=== PATIENT | male | born 1945 | race Caucasian/White ===

== ENCOUNTER → 2017-02-25 | Outpatient (CLI) | payer OTHER ==
[~2017-02-25] MED LIST: ACET1TAB84 PO; CIPR-255 PO; DIAZ-165 PO; LEVO50TA6 PO; MECL1TAB42 PO; ONDA4TAB10 SL; OXYC-57 PO; OXYC1TAB3 PO; PERCOCET PO; PHEN-775 PO
[2017-02-25 15:12] LABS: BLOOD UREA NITROGEN 18 mg/dl (7-18); BUN/CREATININE RATIO 16.7 (10-20); CALCIUM 9.1 mg/dl (8.5-10.1); CARBON DIOXIDE 30 mmol/L (21-32); CHLORIDE 107 mmol/L (98-107); CHOLESTEROL 210 mg/dl (0-200); GLUCOSE 89 mg/dl (70-99); POTASSIUM 4.4 mmol/L (3.5-5.1); SODIUM 140 mmol/L (136-145); TRIGLYCERIDES 65 mg/dl (0-150); VERY LOW DENSITY LIPOPROT CALC 13 mg/dl
[2017-02-25 15:22] LABS: CHOLESTEROL/HDL RATIO 4.3; HDL CHOLESTEROL 49 mg/dl; LDL CHOLESTEROL CALCULATED 148 mg/dl
--- NOTE | 2017-03-04 09:44 | CODING QUERY MEDICAL NECESSITY ---
CQSUPPORTING DIAGNOSIS NEEDED A supporting diagnosis is required for the test/procedure performed on this patient in order for us to be reimbursed by the patient's insurance. Please provide a supporting diagnosis for the following test/procedure listed below next to the test name along with your signature. *If there is no additional diagnosis for this patient that would support the following test/procedure please document that below next to the test/procedure. Test(s)/Procedure(s) that require a supporting diagnosis: DOS 02/25/17 PROSTATE SPECIFIC TEST (PSA) Provider Signature: Date: Thank you Liseth Malcolm Health Information Management Once completed, please kindly fax back to [phone] For questions please call [phone]
== END | disposition home or self-care (01) ==
LOC: C.LABBC 09:52
PROVIDERS: ATTEND Internal Medicine
DX: E78.5 Hyperlipidemia, unspecified (principal); N20.0 Calculus of kidney; E03.9 Hypothyroidism, unspecified; N52.9 Male erectile dysfunction, unspecified; Z12.5 Encounter for screening for malignant neoplasm of prostate

== ENCOUNTER 2017-02-27 14:26 | Emergency (ER) | payer OTHER ==
[~2017-02-27 14:26] MED LIST changes: -ACET1TAB84 PO; -CIPR-255 PO; -DIAZ-165 PO; -LEVO50TA6 PO; -ONDA4TAB10 SL; -OXYC-57 PO; -OXYC1TAB3 PO; -PERCOCET PO; -PHEN-775 PO
[2017-02-27 14:30] VITALS: TEMP 37.2; Ht 180.3 cm
[2017-02-27] MEDS ORDERED: KETOROLAC TROMETHAMINE 30 MG/ML VIAL IV STA (14:44)
[2017-02-27] MEDS ORDERED: LEVO50TA6 PO (14:58)
[2017-02-27 15:00] LABS: BASO % 0.8 %; BASO ABS # 0.05 K/uL (0-0.2); COMPLETE YES; EOS % 4.2 %; HEMATOCRIT 44.7 % (42-52); IG% 0.2 %; LYMPH % 44.9 %; LYMPH ABS # 2.99 K/uL (1.2-3.4); MEAN CELL VOLUME 92.5 fL (80-100); MEAN CORPUSCULAR HEMOGLOBIN 32.1 pg (25-34); MEAN CORPUSCULAR HGB CONC 34.7 g/dl (32-36); MEAN PLATELET VOLUME 10.1 fL (7.4-10.4); MONO % 9.5 %; NEUT % 40.4 %; PLATELET COUNT 220 K/uL (130-400); RED BLOOD COUNT 4.83 M/uL (4.7-6.1); WHITE BLOOD COUNT 6.66 K/uL (4.8-10.8)
[2017-02-27 15:12] LABS: PARTIAL THROMBOPLASTIN RATIO 0.9; PROTHROMBIN TIME (PATIENT) 10.5 SECONDS (9.0-12.0)
[2017-02-27 15:18] LABS: BLOOD UREA NITROGEN 24 mg/dl (7-18); BUN/CREATININE RATIO 19.8 (10-20); CALCIUM 9.4 mg/dl (8.5-10.1); CARBON DIOXIDE 29 mmol/L (21-32); CHLORIDE 105 mmol/L (98-107); GLUCOSE 92 mg/dl (70-99); POTASSIUM 4.3 mmol/L (3.5-5.1); SODIUM 141 mmol/L (136-145)
[2017-02-27 15:27] LABS: URINE APPEARANCE CLOUDY (CLEAR); URINE BILIRUBIN NEG (NEG); URINE COLOR DK YELLOW; URINE EPITHELIAL CELL AUTO >30 /lpf (0-5); URINE NITRITE NEG (NEG); URINE PH 6.5 (4.5-7.5); UROBILINOGEN NEG (NEG)
[2017-02-27 15:31] LABS: MANUAL MICROSCOPIC REQUIRED? NO; REVIEW REQ? YES
--- NOTE | 2017-02-27 15:44 | DIAGNOSTIC IMAGING REPORT ---
CT SCAN OF THE ABDOMEN AND PELVIS WITHOUT IV CONTRAST CLINICAL HISTORY: Pelvic pain. COMPARISON STUDY: Renal ultrasound dated 01/05/2014. TECHNIQUE: CT scan of the abdomen and pelvis is performed from the lung bases to the proximal femora. Images are reviewed in the axial, sagittal, and coronal planes. IV contrast was not administered for this examination as per the referring clinician. Automated dose control exposure was utilized. CT DOSE: 761.28 mGy.cm FINDINGS: Lung bases: The heart is normal in size and without pericardial effusion. A calcified granuloma is seen at the left lung base. There is a 7 mm pulmonary nodule at the right lung base seen on image #48. Dependent atelectasis is observed. There is no airspace consolidation or pleural effusion. There is a tiny hiatal hernia. Liver: The unenhanced liver is normal in size, contour, and attenuation. There is no intrahepatic biliary ductal dilatation. Gallbladder: There are numerous calcified gallstones. The gallbladder is otherwise normal in appearance. Spleen: Normal in size and attenuation. Pancreas: Unremarkable. Adrenal glands: Unremarkable. Kidneys: The unenhanced kidneys demonstrate mild cortical atrophy. There is an 11 mm obstructing calculus in the proximal left ureter seen on axial image #169. This is located at the level of L3 and causes mild to moderate left hydronephrosis. There are at least 3 additional nonobstructing left renal calculi measuring up to 4 mm. No calculi are identified in the right kidney and there is no right-sided hydronephrosis. There is no evidence of contour deforming renal mass lesion. Abdominal vasculature: The abdominal aorta is normal in course and caliber noting moderate atherosclerotic calcification. Bowel: The small bowel and colon are normal in course and caliber. There is mild sigmoid diverticulosis without CT evidence of acute diverticulitis. Moderate colonic fecal retention is observed. The appendix is not identified and reported surgically absent. Peritoneum: There is no intraperitoneal free air or abdominal ascites. There is a fat-containing umbilical hernia. Lymphadenopathy: None. Pelvic viscera: The bladder is partially decompressed and grossly unremarkable. The prostate gland is mildly enlarged. The seminal vesicles are normal as imaged. Skeletal structures: The skeletal structures are osteopenic. There is mild lumbosacral spondylosis and scoliosis. No lytic or blastic lesions are seen. IMPRESSION: 1. There is an 11 mm obstructing calculus in the left proximal ureter. This causes mild to moderate left-sided hydronephrosis. 2. Additional nonobstructing left renal calculi as above. No right renal calculi are identified. 3. Mild colonic diverticulosis without CT evidence of acute diverticulitis. 4. Cholelithiasis. 5. There is an indeterminant 7 mm right lower lobe pulmonary nodule. Follow-up with a nonemergent chest CT is recommended for further assessment of the thorax. Electronically signed by: Agustin Matute M.D. 02/27/2017 3:42 PM Dictated Date/Time: 02/27/2017 3:35 PM
[2017-02-27] MEDS ORDERED: ONDA4TAB10 SL (16:31)
[2017-02-27] MEDS ORDERED: OXYC1TAB3 PO (16:31)
[2017-02-27 16:49] VITALS: BP 141/76; PULSE 53; O2SAT 100
--- NOTE | 2017-02-27 18:10 | EMERGENCY ROOM VISIT NOTE ---
History Report prepared by Colleen: Taylor Amezcua Under the Supervision of: Dr. Kamaljit Degroot M.D. 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 The patient states that he initially felt an urge to urinate. When he urinated, only a very small amount was voided. At that point, his pain started to worsen. He describes the pain as sharp. Upon arrival to the ED, he became nauseated. He currently has an urge to urinate, but once again is only able to void a small amount. He has had some trouble with urination in the past , but nothing out of the ordinary. He has a history of kidney stones. His current symptoms do not feel similar to previous kidney stones. Denies fever, vomiting, dysuria, or other complaints. 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 A total of 10 systems reviewed and were otherwise negative. Past Medical & Surgical Medical Problems: (1) Calculus Of Kidney (2) Hyperlipidemia Nec/Nos Family History No pertinent family history Social History Smoking Status: Never Smoker Alcohol Use: none Drug Use: none Housing Status: lives with family Occupation Status: unemployed Current/Historical Medications Scheduled Levothyroxine Sodium (Levothyroxine Sodium), 50 MCG PO DAILYBB Ondasetron Odt (Zofran Odt), 4 MG SL Q6H Scheduled PRN Oxycodone Ir (Roxicodone Ir), 5 MG PO Q4H PRN for Pain Allergies Coded Allergies: No Known Allergies (Unverified , 02/27/17) Physical Exam Vital Signs Date Time Temp Pulse Resp B/P Pulse Ox O2 Delivery O2 Flow Rate FiO2 02/27/17 16:49 53 19 141/76 100 02/27/17 15:03 150/89 02/27/17 14:30 37.2 56 20 97 Room Air Physical Exam Constitutional: Vital signs reviewed. Eyes: Pupils are equal round reactive to light. Conjunctiva are noninjected. ENT: Pharynx is clear without erythema or exudate. Mucous membranes are moist. Neck supple without meningeal signs. Respiratory: Clear to auscultation bilaterally. Breath sounds are equal bilaterally. Cardiovascular: Regular rate and rhythm. No rubs or gallops. GI: Soft, nondistended and nontender. Bowel sounds are present. : No testicular tenderness, swelling, or erythema. No inguinal hernias. Musculoskeletal: No peripheral edema. No lower extremity tenderness. No CVA tenderness. Integumentary: No cyanosis. Neurological: The patient is awake and alert. No focal deficits. Psychiatric: Normal affect. Medical Decision & Procedures ER Provider Diagnostic Interpretation: Radiology results as stated below per my review and the radiologist's interpretation: CT SCAN OF THE ABDOMEN AND PELVIS WITHOUT IV CONTRAST CLINICAL HISTORY: Pelvic pain. COMPARISON STUDY: Renal ultrasound dated 01/05/2014. TECHNIQUE: CT scan of the abdomen and pelvis is performed from the lung bases to the proximal femora. Images are reviewed in the axial, sagittal, and coronal planes. IV contrast was not administered for this examination as per the referring clinician. Automated dose control exposure was utilized. CT DOSE: 761.28 mGy.cm FINDINGS: Lung bases: The heart is normal in size and without pericardial effusion. A calcified granuloma is seen at the left lung base. There is a 7 mm pulmonary nodule at the right lung base seen on image #48. Dependent atelectasis is observed. There is no airspace consolidation or pleural effusion. There is a tiny hiatal hernia. Liver: The unenhanced liver is normal in size, contour, and attenuation. There is no intrahepatic biliary ductal dilatation. Gallbladder: There are numerous calcified gallstones. The gallbladder is otherwise normal in appearance. Spleen: Normal in size and attenuation. Pancreas: Unremarkable. Adrenal glands: Unremarkable. Kidneys: The unenhanced kidneys demonstrate mild cortical atrophy. There is an 11 mm obstructing calculus in the proximal left ureter seen on axial image #169. This is located at the level of L3 and causes mild to moderate left hydronephrosis. There are at least 3 additional nonobstructing left renal calculi measuring up to 4 mm. No calculi are identified in the right kidney and there is no right-sided hydronephrosis. There is no evidence of contour deforming renal mass lesion. Abdominal vasculature: The abdominal aorta is normal in course and caliber noting moderate atherosclerotic calcification. Bowel: The small bowel and colon are normal in course and caliber. There is mild sigmoid diverticulosis without CT evidence of acute diverticulitis. Moderate colonic fecal retention is observed. The appendix is not identified and reported surgically absent. Peritoneum: There is no intraperitoneal free air or abdominal ascites. There is a fat-containing umbilical hernia. Lymphadenopathy: None. Pelvic viscera: The bladder is partially decompressed and grossly unremarkable. The prostate gland is mildly enlarged. The seminal vesicles are normal as imaged. Skeletal structures: The skeletal structures are osteopenic. There is mild lumbosacral spondylosis and scoliosis. No lytic or blastic lesions are seen. IMPRESSION: 1. There is an 11 mm obstructing calculus in the left proximal ureter. This causes mild to moderate left-sided hydronephrosis. 2. Additional nonobstructing left renal calculi as above. No right renal calculi are identified. 3. Mild colonic diverticulosis without CT evidence of acute diverticulitis. 4. Cholelithiasis. 5. There is an indeterminant 7 mm right lower lobe pulmonary nodule. Follow-up with a nonemergent chest CT is recommended for further assessment of the thorax. Electronically signed by: Agustin Matute M.D. 02/27/2017 3:42 PM Dictated Date/Time: 02/27/2017 3:35 PM Laboratory Results 02/27/17 14:42 Red Blood Count 4.83, Mean Corpuscular Volume 92.5, Mean Corpuscular Hemoglobin 32.1, Mean Corpuscular Hemoglobin Concent 34.7, Mean Platelet Volume 10.1, Neutrophils (%) (Auto) 40.4, Lymphocytes (%) (Auto) 44.9, Monocytes (%) (Auto) 9.5, Eosinophils (%) (Auto) 4.2, Basophils (%) (Auto) 0.8, Neutrophils # (Auto) 2.70, Lymphocytes # (Auto) 2.99, Monocytes # (Auto) 0.63, Eosinophils # (Auto) 0.28, Basophils # (Auto) 0.05 02/27/17 14:42 Test 02/27/17 14:38 02/27/17 14:42 Urine Color DK YELLOW Urine Appearance CLOUDY (CLEAR) Urine pH 6.5 (4.5-7.5) Urine Specific Sparks 1.030 (1.000-1.030) Urine Protein 1+ (NEG) Urine Glucose (UA) NEG (NEG) Urine Ketones NEG (NEG) Urine Occult Blood 3+ (NEG) Urine Nitrite NEG (NEG) Urine Bilirubin NEG (NEG) Urine Urobilinogen NEG (NEG) Urine Leukocyte Esterase TRACE (NEG) Urine WBC (Auto) 1-5 /hpf (0-5) Urine RBC (Auto) 10-30 /hpf (0-4) Urine Hyaline Casts (Auto) 1-5 /lpf (0-5) Urine Epithelial Cells (Auto) >30 /lpf (0-5) Urine Bacteria (Auto) NEG (NEG) Urine Renal Epithelial Cells /lpf (0-5) Urine Crystals CALCIUM OXALATE (NONE White Blood Count 6.66 K/uL (4.8-10.8) Red Blood Count 4.83 M/uL (4.7-6.1) Hemoglobin 15.5 g/dL (14.0-18.0) Hematocrit 44.7 % (42-52) Mean Corpuscular Volume 92.5 fL (80-100) Mean Corpuscular Hemoglobin 32.1 pg (25-34) Mean Corpuscular Hemoglobin Concent 34.7 g/dl (32-36) Platelet Count 220 K/uL (130-400) Mean Platelet Volume 10.1 fL (7.4-10.4) Neutrophils (%) (Auto) 40.4 % Lymphocytes (%) (Auto) 44.9 % Monocytes (%) (Auto) 9.5 % Eosinophils (%) (Auto) 4.2 % Basophils (%) (Auto) 0.8 % Neutrophils # (Auto) 2.70 K/uL (1.4-6.5) Lymphocytes # (Auto) 2.99 K/uL (1.2-3.4) Monocytes # (Auto) 0.63 K/uL (0.11-0.59) Eosinophils # (Auto) 0.28 K/uL (0-0.5) Basophils # (Auto) 0.05 K/uL (0-0.2) RDW Standard Deviation 46.5 fL (36.4-46.3) RDW Coefficient of Variation 13.7 % (11.5-14.5) Immature Granulocyte % (Auto) 0.2 % Immature Granulocyte # (Auto) 0.01 K/uL (0.00-0.02) Prothrombin Time 10.5 SECONDS (9.0-12.0) Prothromb Time International Ratio 1.0 (0.9-1.1) Activated Partial Thromboplast Time 24.2 SECONDS (21.0-31.0) Partial Thromboplastin Ratio 0.9 Anion Gap 7.0 mmol/L (3-11) Estimated GFR () 69.1 Estimated GFR (Non- 59.6 BUN/Creatinine Ratio 19.8 (10-20) Calcium Level 9.4 mg/dl (8.5-10.1) Lipase 211 U/L (73-393) Chemistry Specimen Hemolysis Laboratory results as reviewed by me. Medications Administered Medications (Trade) Dose Ordered Sig/Tyrell Route Start Time Stop Time Status Last Admin Dose Admin Ketorolac Tromethamine (Toradol Inj) 10 mg NOW STAT IV 02/27/17 14:44 02/27/17 14:45 DC 02/27/17 14:58 10 MG ED Course 1437: The patient was evaluated in room B10. A complete history and physical exam was performed. 1444: Ordered Toradol Inj 10 mg IV. 1449: The patient's bladder scan showed 28 cc. 1610: I reassessed the patient. He was feeling much better. I discussed test results with him. 1616: I discussed the case and my plan with Dr. Cuadra's nurse, as he was in the OR. 1628: I gave the patient precautions about using Oxycodone and told him to contact Dr. Cuadra's office. He will be discharged home. Medical Decision This is a 71-year-old male who presents with groin pain and difficulty urinating. Differential diagnosis includes renal colic, hydronephrosis, hernia , UTI, urinary retention. I did perform a limited focused review of portions of the patient's old chart on the electronic medical record. The patient has had no recent pertinent visits to this hospital. I did evaluate the patient as noted above. The patient has a prior history of kidney stones and is presenting with groin pain radiating into his testicles. He has no abnormality on physical examination of his scrotum. IV access was established. I did treat the patient with Toradol IV. I did order and personally review the patient's urinalysis as described above. A urine culture was sent. I did order and review the patient's blood work as noted in the electronic medical record. I did order a CT of the abdomen and pelvis. I did review the images myself as well as the radiology report as described above. He does have an 11 mm left proximal ureteral stone with hydronephrosis. He also has several intrarenal stones as well. I did reassess the patient. He states he is feeling much better. I did discuss the test results with him in detail. He states he follows up with Dr. Cuadra of urology. I did attempt to call Dr. Cuadra but he was in the OR. I did leave a message for his nurse to convey to him. The patient will follow up with Dr. Cuadra. He was discharged with a prescription for oxycodone and Zofran. He was given precautions regarding oxycodone. He was advised to return for worsening symptoms. Consults Time Called: 161 Consulting Physician: Dr. Cuadra's nurse Returned Call: 1616 I discussed the case and my plan with Dr. Cuadra's nurse, as he was in the OR. Impression Primary Impression: Renal colic Additional Impression: Acute unilateral obstructive uropathy Scribe Attestation The scribe's documentation has been prepared under my direct and personally reviewed by me in its entirety. I confirm that the note above accurately reflects all work, treatment, procedures, and medical decision making performed by me. Departure Information Dispostion Home / Self-Care Prescriptions Ondasetron Odt (ZOFRAN ODT) 4 Mg Tab 4 MG SL Q6H for Nausea, #10 TAB Prov: Kamaljit Degroot M.D. 02/27/17 Oxycodone Ir (Roxicodone Ir) 5 Mg Tab 5 MG PO Q4H Y for Pain, #20 TAB Prov: Kamaljit Degroot M.D. 02/27/17 Referrals Pro,Isma Barnett M.D. (PCP) Patient Instructions Kidney Stones Expectant Therapy, My [facility] Additional Instructions You have been examined and treated today on an emergency basis only. This is not a substitute for, or an effort to provide, complete comprehensive medical care. It is impossible to recognize and treat all injuries or illnesses in a single emergency department visit. It is therefore important that you follow up closely with your urologist. Call as soon as possible for an appointment. Return for worsening symptoms or if you develop fever, vomiting, or any other concerning symptoms. Problem Qualifiers
[2017-03-08] MEDS ORDERED: OXYC-57 PO (10:46)
[2017-04-26] MEDS ORDERED: OXYC-57 PO (09:41)
[2017-05-09] MEDS ORDERED: OXYC1TAB3 PO (13:26)
[2017-05-09] MEDS ORDERED: PERCOCET PO (13:47)
[2017-05-27] MEDS ORDERED: ACET1TAB84 PO (10:27)
[2017-05-27] MEDS ORDERED: CIPR-255 PO (13:09)
[2017-05-27] MEDS ORDERED: PHEN-775 PO (13:09)
[2017-05-27] MEDS ORDERED: OXYC1TAB3 PO (13:09)
== END 2017-02-27 17:13 | disposition home or self-care (01) ==
LOC: C.EDB 14:27
DX: N20.2 Calculus of kidney with calculus of ureter (principal); N13.1 Hydronephrosis with ureteral stricture, not elsewhere classified; E78.5 Hyperlipidemia, unspecified; Z87.442 Personal history of urinary calculi; Z79.899 Other long term (current) drug therapy

== ENCOUNTER → 2017-03-04 | Outpatient (CLI) | payer OTHER ==
[~2017-03-04] MED LIST changes: +ACET1TAB84 PO; +CIPR-255 PO; +DIAZ-165 PO; +LEVO50TA6 PO; -MECL1TAB42 PO; +ONDA4TAB10 SL; +OXYC-57 PO; +OXYC1TAB3 PO; +PERCOCET PO; +PHEN-775 PO
--- NOTE | 2017-03-04 11:43 | DIAGNOSTIC IMAGING REPORT ---
KUB HISTORY: N20.0 Nephrolithiasis COMPARISON: Abdomen and pelvis CT 02/27/2017. FINDINGS: The bowel gas pattern is unremarkable. There are no dilated loops of small bowel to suggest an obstruction. No change in the 12 mm stone within the left ureteropelvic junction. No additional renal or bladder calculi. No pneumoperitoneum or pneumatosis. IMPRESSION: No change in the 12 mm left ureteropelvic junction stone. Electronically signed by: Jorge Marcano M.D. 03/04/2017 11:41 AM Dictated Date/Time: 03/04/2017 11:40 AM
== END | disposition home or self-care (01) ==
LOC: C.RAD 11:03
PROVIDERS: ATTEND Nurse Practitioner Adult Health
DX: N20.0 Calculus of kidney (principal)

== ENCOUNTER → 2017-03-05 | Outpatient (CLI) | payer OTHER ==
--- NOTE | 2017-03-05 14:14 | DIAGNOSTIC IMAGING REPORT ---
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 Preoperative evaluation. COMPARISON STUDY: No previous studies for comparison. FINDINGS: Mild emphysematous change. Several small calcified granulomas bilaterally. Prior right acromioplasty apical fibrotic change most likely chronic. No evidence for cardiac enlargement. IMPRESSION: Chronic change. No acute process. Electronically signed by: Shiraz Islas M.D. 03/05/2017 2:12 PM Dictated Date/Time: 03/05/2017 2:11 PM
== END | disposition home or self-care (01) ==
LOC: C.RAD 13:32
PROVIDERS: ATTEND Nurse Practitioner Adult Health
DX: N20.0 Calculus of kidney (principal); Z01.818 Encounter for other preprocedural examination

== ENCOUNTER → 2017-03-08 | Outpatient (CLI) | payer OTHER ==
--- NOTE | 2017-03-08 08:03 | DIAGNOSTIC IMAGING REPORT ---
KUB CLINICAL HISTORY: Nephrolithiasis. FINDINGS: An AP supine abdominal radiograph is compared to study dated 03/04/2017 and correlated with abdominal CT dated 02/27/2017. There is a nonobstructed abdominal bowel gas pattern noting moderate constipation. There is unchanged appearance of a 12 mm obstructing calculus in the left proximal ureter. This projects below the left transverse process of L2. No additional calcifications are clearly seen in either kidney. The skeletal structures are osteopenic. The bony structures appear intact. IMPRESSION: 1. Unchanged appearance of a 12 mm obstructing calculus in the left proximal ureter. 2. Moderate constipation. Electronically signed by: Agustin Matute M.D. 03/08/2017 8:01 AM Dictated Date/Time: 03/08/2017 7:59 AM
== END | disposition home or self-care (01) ==
LOC: C.RAD 07:34
PROVIDERS: ATTEND Nurse Practitioner Adult Health
DX: N20.0 Calculus of kidney (principal); K59.00 Constipation, unspecified

== ENCOUNTER → 2017-03-08 | Day surgery (SDC) | payer OTHER ==
[2017-03-07 10:20] VITALS: Ht 180.3 cm; Wt 76.4 kg
[~2017-03-08] VITALS: Ht 180.3 cm; Wt 76.4 kg
[~2017-03-08] MED LIST changes: +ATROPINE SULFATE 0.1 MG/ML 5ML SYR IV PRN; +CIPROFLOXACIN 400MG / D5W IV SCH; +DEXAMETHASONE SOD INJ 4 MG/ML VIAL ONE; +EpHEDrine SULFATE INJ 50 MG/ML AMP IV PRN; +FENTANYL CITRATE INJ 50 MCG/1 ML 2 ML VIAL IV PRN; +FENTANYL CITRATE INJ 50 MCG/1 ML 2 ML VIAL ONE; +LACTATED RINGER'S 1000ML 1,000 ML IV SCH; +LIDOCAINE HCL 2% 2 ML VIAL (20MG/ML) ONE; +ONDANSETRON INJ 2 MG/ML 2 ML VIAL IV PRN; +ONDANSETRON INJ 2 MG/ML 2 ML VIAL ONE; +OXYCODONE/ACETAMINOPHEN 5-325 TAB PO PRN; +PROPOFOL IV EMULSION 10 MG/ML 20 ML VIAL IV ONE
--- NOTE | 2017-03-08 09:51 | History & Physical Bridge Note ---
H&P Re-Evaluation Bridge Note: I have examined the patient, reviewed the History & Physical and in the interval since the performance of the History & Physical I have noted the following changes of clinical significance: No changes noted
--- NOTE | 2017-03-08 10:45 | [facility] Post Operative Brief Note ---
Immediate Operative Summary Operative Date Mar 08, 2017. Pre-Operative Diagnosis LEFT RENAL STONE Post-Operative Diagnosis SAME Procedure(s) Performed LEFT ESWL Surgeon XIOMY Campaign Advisor Surgeon(s) NONE Estimated Blood Loss NONE Findings LEFT STONE Specimens NONE
--- NOTE | 2017-03-08 10:47 | Discharge Instructions-SurgCtr ---
Discharge Instructions Date of Service Mar 08, 2017. Visit Reason for Visit: Stones Discharge Discharge Diagnosis / Problem: STONE Discharge Goals Goal(s): Therapeutic intervention Activity Recommendations Activity Limitations: resume your previous activity (TAKE IT EASY TODAY) MEDICATIONS: Resume previous medications unless instructed otherwise by your surgeon. Resume pre-ESWL medication except for aspirin, coumadin or other blood thinners. __ Toradol 10 mg every 6 hours for initial pain. __ Lortab 5 mg 1-2 every 4 hours for pain. _X_ Percocet 5 mg 1-2 every 4 hours for pain. __ Macrodantin 50 mg x 3 a day. __ Flomax 1 tab daily one half (1/2) hour after supper. SPECIAL CARE INSTRUCTIONS: 1. Get KUB (x-ray) _X_ day before or day of office visit and bring x-ray to office __ get x-ray 2 days before and tell office you are getting x-rays when you call for the appointment. 2. Strain ALL urine. 3. Please call if you have a fever, chills, severe pain, or constant dribbling of urine. 4. Office phone number . FOLLOW UP VISIT: Please call the office to schedule a follow-up appointment at . Anesthesia . Post Anesthesia Instructions: If you have had General Anesthesia or IV Sedation: * Do not drive today. * Resume driving when surgeon permits. * Do not make important decisions or sign legal documents today. * Call surgeon for: 1. Temperature elevations greater than 101 degrees F. 2. Uncontrollable pain. 3. Excessive bleeding. 4. Persistent nausea and vomiting. 5. Medication intolerance (nausea, vomiting or rash). * For nausea and vomiting use only clear liquids such as: tea, soda, bouillon until nausea subsides, then gradually increase diet as tolerated. * If you have any concerns or questions, call your surgeon's office. If physician is unavailable and it is an emergency, call 911 or go to the nearest emergency room. . Diet Recommendations Home Diet: resume previous diet Procedures Procedures Performed: LEFT ESWL Pending Studies Studies pending at discharge: no Medical Emergencies . Who to Call and When: Medical Emergencies: If at any time you feel your situation is an emergency, please call 911 immediately. . Non-Emergent Contact Non-Emergency issues call your: Urologist . . "Provider Documentation" section prepared by Konstantin Franklin. . [facility] Drug Monitoring Program Search Results: patient reviewed within database
[2017-03-08 11:57] VITALS: TEMP 36.3
[2017-03-08 12:21] VITALS: BP 146/80; PULSE 57; O2SAT 100
--- NOTE | 2017-03-08 12:21 | Anesthesia Progress Nt - [facility] ---
Anesthesia Post Op Note Date & Time Mar 08, 2017 at 12:20 Vital Signs Pain Intensity: 2 Vital Signs Past 12 Hours Date Time Temp Pulse Resp B/P Pulse Ox O2 Delivery O2 Flow Rate FiO2 03/08/17 11:57 36.3 59 18 128/79 99 Room Air 03/08/17 11:46 69 17 03/08/17 11:46 69 17 99 03/08/17 11:45 139/81 03/08/17 11:45 36.5 70 20 132/83 99 Room Air 03/08/17 11:44 67 16 03/08/17 11:44 67 16 99 03/08/17 11:43 67 14 03/08/17 11:43 68 14 99 03/08/17 11:40 132/83 03/08/17 11:38 72 17 03/08/17 11:38 72 17 99 03/08/17 11:37 70 13 99 03/08/17 11:37 70 13 03/08/17 11:35 135/75 03/08/17 11:32 69 14 100 03/08/17 11:32 70 14 03/08/17 11:31 71 13 03/08/17 11:31 72 13 100 03/08/17 11:30 127/79 03/08/17 11:26 70 13 03/08/17 11:26 70 13 100 03/08/17 11:25 131/79 03/08/17 11:21 71 11 100 03/08/17 11:21 71 11 03/08/17 11:20 122/79 03/08/17 11:17 129/77 03/08/17 11:16 76 03/08/17 11:16 36.3 76 8 129/77 99 Mask 8 03/08/17 11:16 76 99 03/08/17 08:43 36.4 63 16 117/78 96 Room Air Notes Mental Status: alert / awake / arousable, participated in evaluation Pt Amnestic to Procedure: Yes Nausea / Vomiting: adequately controlled Pain: adequately controlled Airway Patency, RR, SpO2: stable & adequate BP & HR: stable & adequate Hydration State: stable & adequate Anesthetic Complications: no major complications apparent
--- NOTE | 2017-03-13 12:24 | OPERATIVE REPORT ---
DATE OF OPERATION: 03/08/2017 PREOPERATIVE DIAGNOSIS: Left renal calculus. POSTOPERATIVE DIAGNOSIS: Same. PROCEDURE: Extracorporeal shockwave lithotripsy. FINDINGS: KUB showed stone left kidney. SURGEON: Dr. Franklin. ANESTHESIA: General. DRAINS: None. COMPLICATIONS: None. SPECIMENS: None. INDICATIONS: The patient is a 71-year-old white male with left renal stone, being brought in for ESWL. DETAILS OF PROCEDURE: The patient was brought to the litho suite. He was correctly identified and the stone was visualized on his most recent x-rays. After the correct time out was performed the patient was positioned over the therapy head. An adequate level of anesthesia was administered. The extracorporeal shockwave lithotripsy treatment was then commenced. Please see the [place] Kidney Stone Management sheet for complete treatment summary. After completion of the procedure the patient was taken to the recovery room in stable condition. I attest to the content of the Intraoperative Record and any orders documented therein. Any exceptio ns are noted below.
== END | disposition home or self-care (01) ==
LOC: X.SURG 08:06
PROVIDERS: ATTEND Urology
DX: N20.0 Calculus of kidney (principal); N20.1 Calculus of ureter; E78.5 Hyperlipidemia, unspecified; E03.9 Hypothyroidism, unspecified; Z90.89 Acquired absence of other organs; Z98.890 Other specified postprocedural states; Z68.25 Body mass index [BMI] 25.0-25.9, adult; Z82.49 Family history of ischemic heart disease and other diseases of the circulatory system; Z80.1 Family history of malignant neoplasm of trachea, bronchus and lung

== ENCOUNTER → 2017-03-19 | Outpatient (CLI) | payer OTHER ==
[~2017-03-19] MED LIST changes: -ATROPINE SULFATE 0.1 MG/ML 5ML SYR IV PRN; -CIPROFLOXACIN 400MG / D5W IV SCH; -DEXAMETHASONE SOD INJ 4 MG/ML VIAL ONE; -EpHEDrine SULFATE INJ 50 MG/ML AMP IV PRN; -FENTANYL CITRATE INJ 50 MCG/1 ML 2 ML VIAL IV PRN; -FENTANYL CITRATE INJ 50 MCG/1 ML 2 ML VIAL ONE; -LACTATED RINGER'S 1000ML 1,000 ML IV SCH; -LIDOCAINE HCL 2% 2 ML VIAL (20MG/ML) ONE; -ONDANSETRON INJ 2 MG/ML 2 ML VIAL IV PRN; -ONDANSETRON INJ 2 MG/ML 2 ML VIAL ONE; -OXYCODONE/ACETAMINOPHEN 5-325 TAB PO PRN; -PROPOFOL IV EMULSION 10 MG/ML 20 ML VIAL IV ONE
--- NOTE | 2017-03-19 15:12 | DIAGNOSTIC IMAGING REPORT ---
KUB CLINICAL HISTORY: NEPHROLITHIASIS nephrocalcinosis COMPARISON STUDY: 03/08/2017 FINDINGS: The obstructing calculus of the proximal left ureter is essentially unchanged in appearance. The show no evidence for migration. Bowel pattern is nonobstructive. IMPRESSION: Unchanged appearance and location of obstructing calculus of the proximal left ureter Electronically signed by: Shiraz Islas M.D. 03/19/2017 3:11 PM Dictated Date/Time: 03/19/2017 3:10 PM
== END | disposition home or self-care (01) ==
LOC: C.RAD1850 15:00
PROVIDERS: ATTEND Nurse Practitioner Adult Health
DX: N20.0 Calculus of kidney (principal); N20.1 Calculus of ureter

== ENCOUNTER → 2017-03-20 | Outpatient (CLI) | payer OTHER | END | disposition home or self-care (01) | LOC: C.LABSPEC 17:24 | PROVIDERS: ATTEND Urology | DX: N20.0 Calculus of kidney (principal) ==

== ENCOUNTER 2017-03-29 09:21 | Emergency (ER) | payer OTHER ==
[~2017-03-29] VITALS: Ht 180.3 cm; Wt 80.0 kg
[~2017-03-29 09:21] MED LIST changes: -ACET1TAB84 PO; -CIPR-255 PO; -DIAZ-165 PO; -ONDA4TAB10 SL; -OXYC-57 PO; -OXYC1TAB3 PO; -PERCOCET PO; -PHEN-775 PO
[2017-03-29 09:23] VITALS: TEMP 36.3
[2017-03-29] MEDS ORDERED: SODIUM CHLORIDE 0.9% 1000ML 1,000 ML IV STA (09:36)
[2017-03-29 09:41] VITALS: Ht 180.3 cm; Wt 80.0 kg
[2017-03-29] MEDS ORDERED: DIAZEPAM INJ 5 MG/ML 2 ML CARP IV STA (09:52)
[2017-03-29] MEDS ORDERED: SODIUM CHLORIDE 0.9% 500ML 500 ML IV STA (09:52)
[2017-03-29] MEDS ORDERED: ONDANSETRON 8 MG/54 ML D5W IV STA (09:52)
[2017-03-29 10:28] LABS: BASO % 0.4 %; BASO ABS # 0.02 K/uL (0-0.2); COMPLETE YES; EOS % 1.2 %; IG% 0.2 %; LYMPH % 23.1 %; LYMPH ABS # 1.19 K/uL (1.2-3.4); MEAN CELL VOLUME 92.7 fL (80-100); MEAN CORPUSCULAR HEMOGLOBIN 31.5 pg (25-34); MEAN PLATELET VOLUME 10.1 fL (7.4-10.4); MONO % 6.2 %; NEUT % 68.9 %; PLATELET COUNT 213 K/uL (130-400); RED BLOOD COUNT 4.64 M/uL (4.7-6.1); WHITE BLOOD COUNT 5.16 K/uL (4.8-10.8)
[2017-03-29 10:46] LABS: BUN/CREATININE RATIO 11.5 (10-20); CALCIUM 9.1 mg/dl (8.5-10.1); CREATININE 1.1 mg/dl (0.60-1.40); MAGNESIUM 2.2 mg/dl (1.8-2.4); POTASSIUM 3.9 mmol/L (3.5-5.1)
[2017-03-29 10:51] VITALS: O2SAT 95
[2017-03-29 10:57] LABS: THYROID STIMULATING HORMONE 0.922 uIu/ml (0.300-4.500)
--- NOTE | 2017-03-29 11:05 | DIAGNOSTIC IMAGING REPORT ---
CT OF THE HEAD WITHOUT CONTRAST CLINICAL HISTORY: Dizziness. COMPARISON STUDY: No previous studies for comparison. CT DOSE: 537.48 mGy.cm TECHNIQUE: Helical axial images of the head were obtained without IV contrast. Automated exposure control was utilized for the study. FINDINGS: No acute intracranial hemorrhage, midline shift or mass effect is present. Brain volume is normal for age. Ventricular system is unremarkable. Basilar cisterns are patent. There are no extra-axial collections. Sol[place]-white differentiation is preserved. Mild white matter hypodensity suggests small vessel disease. There are no findings to suggest acute dural sinus thrombosis or acute territorial infarct. Visualized portions of the sinuses and mastoid air cells are clear. There are no calvarial abnormalities. IMPRESSION: No acute intracranial findings. Electronically signed by: Aneesh Prakash M.D. 03/29/2017 11:03 AM Dictated Date/Time: 03/29/2017 11:01 AM
[2017-03-29 11:17] LABS: MANUAL MICROSCOPIC REQUIRED? NO; REVIEW REQ? NO; URINE APPEARANCE CLEAR (CLEAR); URINE BILIRUBIN NEG (NEG); URINE COLOR YELLOW; URINE NITRITE NEG (NEG); URINE SPECIFIC GRAVITY 1.012 (1.000-1.030); UROBILINOGEN NEG (NEG)
[2017-03-29] MEDS ORDERED: ONDA4TAB10 SL (12:50)
[2017-03-29] MEDS ORDERED: DIAZ-165 PO (12:50)
[2017-03-29 13:07] VITALS: BP 145/76; PULSE 60; O2SAT 97
--- NOTE | 2017-03-29 17:08 | EMERGENCY ROOM VISIT NOTE ---
History Report prepared by Colleen: Kia Shine Under the Supervision of: Dr. Pradip Ch M.D. First contact with patient: 09:34 Chief Complaint: DIZZY Stated Complaint: DIZZINESS Nursing Triage Summary: Woke up at 0545 to urinate, was extremely dizzy and nauseated. Dizziness has decreased slightly and nausea is resolved prior to ED arrival. Pt did eat a small amount prior to arrival. Was supposed to have lithotripsy at 1000 at the surgery center today. No additional complaints. History of Present Illness The patient is a 72 year old male who presents to the Emergency Room with complaints of intermittent dizziness starting about 5 hours ago. The patient had an onset of his symptoms when he woke up to go to the bathroom. He woke up with the dizziness. He describes it to be room-spinning dizziness. He has worsening dizziness with resting and closing his eyes. The dizziness also worsens with changes in position. He also had nausea but denies vomiting. He had a similar episode in 2013 which was suspected to be related to new medications and vertigo. The patient has a history of kidney stones and thyroid problems. He was supposed to have lithotripsy this morning. He had an enema in preparation for the procedure. He had been fasting since 8-8:30 pm yesterday. He also had a reduced amount of fluid intake last night. He also complains of intermittent numbness in right hand fingers occurring for a long time. He currently denies any numbness or tingling. Pt denies LOC, headache, fevers, chills, diaphoresis, visual changes, trouble speaking, neck pain, chest pain, breathing difficulties, abdominal pain, back pain, melena, hematochezia, urinary symptoms, weakness, lymphadenopathy, rash, or other complaints. Source of History: patient Onset: about 5 hours ago Position: other (global) Quality: other (dizziness) Timing: intermittent Modifying Factors (Worsening): rest (and closing eyes), other (changes in position) Associated Symptoms: + nausea Review of Systems See HPI for pertinent positives and negatives. A total of ten systems were reviewed and were otherwise negative. Past Medical & Surgical Medical Problems: (1) Calculus Of Kidney (2) Hyperlipidemia Nec/Nos Family History No pertinent family history Social History Smoking Status: Former Smoker Alcohol Use: none Drug Use: none Housing Status: lives with family Occupation Status: unemployed Current/Historical Medications Scheduled Levothyroxine Sodium (Levothyroxine Sodium), 50 MCG PO QAM Ondasetron Odt (Zofran Odt), 4 MG SL Q6H Scheduled PRN Diazepam (Valium), 5 MG PO Q6H PRN for Dizziness or Vertigo Allergies Coded Allergies: No Known Allergies (Unverified , 03/29/17) Physical Exam Vital Signs Date Time Temp Pulse Resp B/P Pulse Ox O2 Delivery O2 Flow Rate FiO2 03/29/17 13:07 60 145/76 97 03/29/17 13:03 145/76 03/29/17 12:37 54 99 03/29/17 12:30 128/67 03/29/17 12:07 58 99 03/29/17 12:00 133/73 03/29/17 11:51 57 151/74 98 Room Air 03/29/17 11:49 151/74 03/29/17 11:37 54 13 98 03/29/17 11:30 145/71 03/29/17 11:24 138/82 03/29/17 11:07 59 15 98 03/29/17 10:51 95 Room Air 03/29/17 10:32 125/74 03/29/17 10:31 142/71 03/29/17 10:29 135/68 03/29/17 10:28 59 135/68 67 142/71 67 125/74 03/29/17 10:21 67 16 03/29/17 09:51 64 18 99 03/29/17 09:37 142/77 03/29/17 09:37 79 03/29/17 09:23 36.3 62 20 135/72 99 Room Air Physical Exam GENERAL: Awake, alert, well appearing, no distress HENT: Normocephalic, atraumatic. TM's normal. Oropharynx unremarkable. EYES: PERRL. EOMI. Normal conjunctiva. Sclera non-icteric. Lateral nystagmus to the right. NECK: Supple. No nuchal rigidity. FROM. No JVD or bruit. RESPIRATORY: CTA CARDIAC: RRR. No murmur. ABDOMEN: Soft, non distended. No tenderness to palpation. No rebound or guarding. No masses. RECTAL: Deferred. MUSCULOSKELETAL: Unremarkable. No edema. No discoloration. Gross motor strength symmetric. NEURO: Cranial nerves 2-12 grossly intact. Normal sensorium. No sensory or motor deficits noted. Speech normal. No pronator drift. Positive [place] to the right. Negative HINTS exam. SKIN: No rash or jaundice noted. LYMPH: No adenopathy. Medical Decision & Procedures ER Provider Diagnostic Interpretation: CT: Radiology results as stated below per my review and radiologist interpretation CT OF THE HEAD WITHOUT CONTRAST CLINICAL HISTORY: Dizziness. COMPARISON STUDY: No previous studies for comparison. CT DOSE: 537.48 mGy.cm TECHNIQUE: Helical axial images of the head were obtained without IV contrast. Automated exposure control was utilized for the study. FINDINGS: No acute intracranial hemorrhage, midline shift or mass effect is present. Brain volume is normal for age. Ventricular system is unremarkable. Basilar cisterns are patent. There are no extra-axial collections. Sol[place]-white differentiation is preserved. Mild white matter hypodensity suggests small vessel disease. There are no findings to suggest acute dural sinus thrombosis or acute territorial infarct. Visualized portions of the sinuses and mastoid air cells are clear. There are no calvarial abnormalities. IMPRESSION: No acute intracranial findings. Electronically signed by: Aneesh Prakash M.D. 03/29/2017 11:03 AM Dictated Date/Time: 03/29/2017 11:01 AM Laboratory Results 03/29/17 10:15 Red Blood Count 4.64, Mean Corpuscular Volume 92.7, Mean Corpuscular Hemoglobin 31.5, Mean Corpuscular Hemoglobin Concent 34.0, Mean Platelet Volume 10.1, Neutrophils (%) (Auto) 68.9, Lymphocytes (%) (Auto) 23.1, Monocytes (%) (Auto) 6.2, Eosinophils (%) (Auto) 1.2, Basophils (%) (Auto) 0.4, Neutrophils # (Auto) 3.56, Lymphocytes # (Auto) 1.19, Monocytes # (Auto) 0.32, Eosinophils # (Auto) 0.06, Basophils # (Auto) 0.02 03/29/17 10:15 Test 03/29/17 10:15 03/29/17 10:45 White Blood Count 5.16 K/uL (4.8-10.8) Red Blood Count 4.64 M/uL (4.7-6.1) Hemoglobin 14.6 g/dL (14.0-18.0) Hematocrit 43.0 % (42-52) Mean Corpuscular Volume 92.7 fL (80-100) Mean Corpuscular Hemoglobin 31.5 pg (25-34) Mean Corpuscular Hemoglobin Concent 34.0 g/dl (32-36) Platelet Count 213 K/uL (130-400) Mean Platelet Volume 10.1 fL (7.4-10.4) Neutrophils (%) (Auto) 68.9 % Lymphocytes (%) (Auto) 23.1 % Monocytes (%) (Auto) 6.2 % Eosinophils (%) (Auto) 1.2 % Basophils (%) (Auto) 0.4 % Neutrophils # (Auto) 3.56 K/uL (1.4-6.5) Lymphocytes # (Auto) 1.19 K/uL (1.2-3.4) Monocytes # (Auto) 0.32 K/uL (0.11-0.59) Eosinophils # (Auto) 0.06 K/uL (0-0.5) Basophils # (Auto) 0.02 K/uL (0-0.2) RDW Standard Deviation 45.6 fL (36.4-46.3) RDW Coefficient of Variation 13.4 % (11.5-14.5) Immature Granulocyte % (Auto) 0.2 % Immature Granulocyte # (Auto) 0.01 K/uL (0.00-0.02) Anion Gap 4.0 mmol/L (3-11) Est Creatinine Clear Calc Drug Dose 62.7 ml/min Estimated GFR () 76.2 Estimated GFR (Non- 65.8 BUN/Creatinine Ratio 11.5 (10-20) Calcium Level 9.1 mg/dl (8.5-10.1) Magnesium Level 2.2 mg/dl (1.8-2.4) Total Bilirubin 0.6 mg/dl (0.2-1) Direct Bilirubin 0.1 mg/dl (0-0.2) Aspartate Amino Transf (AST/SGOT) 14 U/L (15-37) Alanine Aminotransferase (ALT/SGPT) 19 U/L (12-78) Alkaline Phosphatase 63 U/L (45-117) Total Protein 7.1 gm/dl (6.4-8.2) Albumin 3.6 gm/dl (3.4-5.0) Thyroid Stimulating Hormone (TSH) 0.922 uIu/ml (0.300-4.500) Urine Color YELLOW Urine Appearance CLEAR (CLEAR) Urine pH 7.0 (4.5-7.5) Urine Specific [place] 1.012 (1.000-1.030) Urine Protein NEG (NEG) Urine Glucose (UA) NEG (NEG) Urine Ketones NEG (NEG) Urine Occult Blood NEG (NEG) Urine Nitrite NEG (NEG) Urine Bilirubin NEG (NEG) Urine Urobilinogen NEG (NEG) Urine Leukocyte Esterase TRACE (NEG) Urine WBC (Auto) 1-5 /hpf (0-5) Urine RBC (Auto) 0-4 /hpf (0-4) Urine Hyaline Casts (Auto) 1-5 /lpf (0-5) Urine Epithelial Cells (Auto) 5-10 /lpf (0-5) Urine Bacteria (Auto) NEG (NEG) Laboratory results reviewed by me Medications Administered Medications (Trade) Dose Ordered Sig/Tyrell Route Start Time Stop Time Status Last Admin Dose Admin Sodium Chloride (Nss 1000ml) 1,000 ml @ 125 mls/hr Q8H STAT IV 03/29/17 09:36 03/29/17 13:42 DC 03/29/17 11:18 125 MLS/HR Ondansetron HCl 8 mg 8 mg NOW STAT IV 03/29/17 09:52 03/29/17 09:54 DC 03/29/17 10:45 8 MG Sodium Chloride (Nss 500ml) 500 ml @ 999 mls/hr Q31M STAT IV 03/29/17 09:52 03/29/17 10:22 DC 03/29/17 10:39 999 MLS/HR Diazepam (Valium Inj) 2.5 mg NOW STAT IV 03/29/17 09:52 03/29/17 09:54 DC 03/29/17 10:40 2.5 MG ECG Indication: other (Dizziness) Rate (beats per minute): 59 Rhythm: sinus bradycardia Findings: no acute ischemic change, no ectopy ED Course 0934: The patient was evaluated in room B06. A complete history and physical exam was performed. 0936: Sodium Chloride 1000 ml @ 125 mls/hr IV 0952: Valium Inj 2.5 mg IV, Sodium Chloride 500 ml @ 999 mls/hr IV, Ondansetron HCl 8 mg IV 1139: I reevaluated the patient who feels good. He will perform an ambulation trial. 1222: I reevaluated the patient. The ambulation trial was successful. Discussed results and discharge instructions: He verbalized understanding and agreement. The patient is ready for discharge. Medical Decision Prior records/ancillary studies reviewed. Triage Nursing notes reviewed and agree them. The patient's history was concerning for dizziness. Differential diagnosis: Etiologies such as benign positional vertigo, tumor, infection, hypoglycemia, electrolyte abnormalities, cardiac sources, intracerebral event, toxicologic, neurologic, as well as others were entertained. Physical examination: As above. No pathologic nystagmus. No focal neurologic findings. ER treatment provided: IV hydration over one hour IV Zofran IV Valium 2.5 mg On reassessment the patient felt well. Diagnostics interpretation by me: ECG: sinus bradycardia without ischemic change or evidence of dysrhythmia. The labs revealed a normal CBC and chemistry panel. Imaging studies: CT as above It appears the patient had an episode of benign -positional vertigo. He ambulated without difficulty. His symptoms are resolved after the above treatment. By the evaluation outlined above emergent etiologies such as infection, hypoglycemia, electrolyte abnormalities, cardiac sources, intracerebral event, toxicologic, neurologic,as well as others were deemed relatively unlikely. The patient and for informed about the findings as listed above. All questions were answered and they were pleased with the treatment. Return instructions were outlined and the patient was discharged in stable condition. Outpatient prescription management: Valium Zofran Referral: The patient was referred back to his primary care physician for follow-up next week for a recheck of the current condition. The chart was completed utilizing [employer] Speech voice recognition software. Grammatical errors, random word insertions, pronoun errors, and incomplete sentences are an occasional consequence of this system due to software limitations, ambient noise, and hardware issues. Any formal questions or concerns about the content, text, or information contained within the body of this dictation should be directly addressed to the physician for clarification. [place] Drug Monitoring Program Search Results: patient reviewed within database, no issues identified Impression Primary Impression: Dizziness Additional Impression: Vertigo Scribe Attestation The scribe's documentation has been prepared under my direction and personally reviewed by me in its entirety. I confirm that the note above accurately reflects all work, treatment, procedures, and medical decision making performed by me. Departure Information Dispostion Home / Self-Care Prescriptions Ondasetron Odt (ZOFRAN ODT) 4 Mg Tab 4 MG SL Q6H for Nausea, #6 TAB Prov: Pradip Ch MD 03/29/17 Diazepam (Valium) 5 Mg Tab 5 MG PO Q6H Y for Dizziness or Vertigo, #10 TAB Prov: Pradip Ch MD 03/29/17 Referrals Pro,Isma Barnett M.D. (PCP) Forms HOME CARE DOCUMENTATION FORM, IMPORTANT VISIT INFORMATION Patient Instructions My [facility] Additional Instructions DIZZINESS INSTRUCTIONS: DO NOT drive, drink alcohol, operate machinery, or perform dangerous activities today. You were given medications in the ER that can affect your ability to safely function or operate a vehicle. You should not drive or perform any dangerous activities until your symptoms resolve. Valium 5mg: Take 1 pill every 6-8 hours as needed for dizziness or vertigo. Avoid alcohol, operating machinery or dangerous equipment, working on ladders or roofs, DRIVING, or situations where being under the influence may be dangerous Zofran 4 mg oral dissolving tablets: take one tablet and allow it to melt in your mouth every 4 hours as needed for nausea. Rest and drink plenty of fluids as tolerated. Continue current medications. If you have nausea or vomiting: Once your stomach is settled start with a clear liquid diet (jello, soup broth, etc.) and then advance as tolerated. You should avoid full, heavy meals for about 24 hrs from the time your symptoms resolved. Return to the ER immediately for worsening or persistent dizziness, vomiting, headache, fevers, chest pains, difficulty breathing, black or bloody stools, slurred speech, numbness, weakness, visual changes, worsening of your condition , or as needed. Follow up with your primary physician next week for a recheck of your current condition. Problem Qualifiers
[2017-04-26] MEDS ORDERED: OXYC-57 PO (09:41)
[2017-05-09] MEDS ORDERED: OXYC1TAB3 PO (13:26)
[2017-05-09] MEDS ORDERED: PERCOCET PO (13:47)
[2017-05-27] MEDS ORDERED: ACET1TAB84 PO (10:27)
[2017-05-27] MEDS ORDERED: PHEN-775 PO (13:09)
[2017-05-27] MEDS ORDERED: OXYC1TAB3 PO (13:09)
[2017-05-27] MEDS ORDERED: CIPR-255 PO (13:09)
== END 2017-03-29 13:08 | disposition home or self-care (01) ==
LOC: C.EDB 09:22
DX: R42 Dizziness and giddiness (principal); R00.1 Bradycardia, unspecified; E78.5 Hyperlipidemia, unspecified; Z87.442 Personal history of urinary calculi; Z87.891 Personal history of nicotine dependence; Z79.899 Other long term (current) drug therapy

== ENCOUNTER → 2017-04-25 | Outpatient (CLI) | payer OTHER ==
[~2017-04-25] MED LIST changes: +ACET1TAB84 PO; +CIPR-255 PO; +OXYC-57 PO; +OXYC1TAB3 PO; +PERCOCET PO; +PHEN-775 PO
--- NOTE | 2017-04-25 16:51 | DIAGNOSTIC IMAGING REPORT ---
KUB CLINICAL HISTORY: N20.0 [id number] nephrocalcinosis COMPARISON STUDY: 03/19/2017 FINDINGS: Unchanged exam. Calculus of the proximal left ureter is unaltered. It is unchanged in size configuration or location. Maximum dimension is 1 cm. Kidneys otherwise are obscured. IMPRESSION: Unchanged proximal left ureteral calculus. Electronically signed by: Shiraz Islas M.D. 04/25/2017 4:50 PM Dictated Date/Time: 04/25/2017 4:49 PM
== END ==
LOC: C.RAD 16:06
PROVIDERS: ATTEND Urology
DX: N20.0 Calculus of kidney (principal)

== ENCOUNTER → 2017-04-26 | Day surgery (SDC) | payer OTHER ==
[2017-03-22 10:18] VITALS: BMI 23.0
--- NOTE | 2017-03-29 08:41 | Anesthesiology Progress Note ---
Anesthesia Progress Note Date of Service March 29, 2017. Progress Notes Pt was scheduled for ESWL today. The patient called the surgery center, and stated that he was having dizziness since 5AM this morning. I spoke with the patient over the phone. He stated that the dizziness has persisted. He had a workup in the past without results. I spoke to the patient about coming to the hospital to get the dizziness re-evaluated. The patient's was with him, and I stressed that his would need to drive him into the hospital. The patient understood. I spoke to Dr. Cuadra about the situation, and he was in agreement to re-schedule the procedure to a later date.
[2017-04-18 15:47] VITALS: Ht 180.3 cm; Wt 76.4 kg
[~2017-04-26] VITALS: Ht 180.3 cm; Wt 76.4 kg
[~2017-04-26] MED LIST changes: +ATROPINE SULFATE 0.1 MG/ML 5ML SYR IV PRN; +CIPROFLOXACIN / D5W 400 MG IV SCH; +DEXAMETHASONE SOD INJ 4 MG/ML VIAL IV PRN; +EpHEDrine SULFATE INJ 50 MG/ML AMP IV PRN; +FENTANYL CITRATE INJ 50 MCG/1 ML 2 ML VIAL IV PRN; +HYDROmorphone INJ 1 MG/ML SYR IV PRN; +KETOROLAC TROMETHAMINE 15 MG/ML VIAL IV. PRN; +LABETALOL HCL IV 5 MG/ML 20ML IV PRN; +LACTATED RINGER'S 1000ML 1,000 ML IV SCH; +METOCLOPRAMIDE HCL INJ 5 MG/ML 2 ML VIAL IV PRN; +MoRPHine SULFATE 10 MG/ML CARP/VIAL IV PRN; +ONDANSETRON INJ 2 MG/ML 2 ML VIAL IV PRN; +PHENYLEPHRINE 100MCG/ML 5ML SYR IV PRN
--- NOTE | 2017-04-26 09:42 | Discharge Instructions-SurgCtr ---
Discharge Instructions Date of Service Apr 26, 2017. Visit Reason for Visit: Stones Discharge Discharge Diagnosis / Problem: post op l eswl Discharge Goals Goal(s): Decrease discomfort, Increase independence, Improve disease control Activity Recommendations Activity Limitations: per Instructions/Follow-up section Anesthesia . Post Anesthesia Instructions: If you have had General Anesthesia or IV Sedation: * Do not drive today. * Resume driving when surgeon permits. * Do not make important decisions or sign legal documents today. * Call surgeon for: 1. Temperature elevations greater than 101 degrees F. 2. Uncontrollable pain. 3. Excessive bleeding. 4. Persistent nausea and vomiting. 5. Medication intolerance (nausea, vomiting or rash). * For nausea and vomiting use only clear liquids such as: tea, soda, bouillon until nausea subsides, then gradually increase diet as tolerated. * If you have any concerns or questions, call your surgeon's office. If physician is unavailable and it is an emergency, call 911 or go to the nearest emergency room. . Diet Recommendations Home Diet: resume previous diet Procedures Procedures Performed: Left Extracorporeal Shock Wave Lithotripsy, Repeat - Renal Pending Studies Studies pending at discharge: no Medical Emergencies . Who to Call and When: Medical Emergencies: If at any time you feel your situation is an emergency, please call 911 immediately. . Non-Emergent Contact Non-Emergency issues call your: Primary Care Provider, Urologist Call Non-Emergent contact if: temperature is above 101, your pain is not controlled . . "Provider Documentation" section prepared by Benja Jefferson. .
--- NOTE | 2017-04-26 10:25 | Anesthesiology Progress Note ---
Anesthesia Post Op Note Date & Time Apr 26, 2017 at 10:25 Vital Signs Pain Intensity: 0 Vital Signs Past 12 Hours Date Time Temp Pulse Resp B/P (MAP) Pulse Ox O2 Delivery O2 Flow Rate FiO2 04/26/17 10:08 13 04/26/17 10:08 56 13 04/26/17 10:07 120/69 04/26/17 10:03 53 11 100 04/26/17 10:03 53 11 04/26/17 10:02 123/76 04/26/17 09:58 55 11 100 04/26/17 09:58 54 11 04/26/17 09:57 124/78 04/26/17 09:53 54 10 04/26/17 09:53 54 10 100 04/26/17 09:52 122/78 04/26/17 09:48 52 10 04/26/17 09:48 53 10 100 04/26/17 09:47 54 11 04/26/17 09:47 53 11 123/76 100 04/26/17 09:47 53 11 123/76 100 04/26/17 09:47 54 11 04/26/17 09:44 126/73 04/26/17 09:44 126/73 04/26/17 09:42 36.0 53 14 126/73 100 Mask 6 04/26/17 07:16 36.6 60 16 116/76 (89) 97 Room Air Notes Mental Status: alert / awake / arousable, participated in evaluation Pt Amnestic to Procedure: Yes Nausea / Vomiting: adequately controlled Pain: adequately controlled Airway Patency, RR, SpO2: stable & adequate BP & HR: stable & adequate Hydration State: stable & adequate Anesthetic Complications: no major complications apparent
[2017-04-26 10:27] VITALS: BP 148/86; O2SAT 96
--- NOTE | 2017-04-26 11:14 | OPERATIVE REPORT ---
DATE OF OPERATION: 04/26/2017 PREOPERATIVE DIAGNOSIS: Left renal stone. POSTOPERATIVE DIAGNOSIS: Same. SURGEON: Dr. Jefferson. INDICATIONS: The patient is a 72-year-old male with a history of a left ureteropelvic junction stone that had been previously shocked without significant fragmentation who elected to have a second attempt at lithotripsy. DESCRIPTION OF THE PROCEDURE: The patient was taken to the operating room where general anesthesia was administered after Venodyne stockings had been placed and antibiotics given. He was placed in the supine position. The stone was visualized in 2 views in the supine position and he was given 2500 shocks, the majority at level 5. The stone did not appear to completely fragment at the end of the procedure. He was transferred to the recovery room in stable condition. I attest to the content of the Intraoperative Record and any orders documented therein. Any exception s are noted below.
[2017-04-26 11:17] VITALS: PULSE 100; TEMP 36.5
== END | disposition home or self-care (01) ==
LOC: X.SURG 07:01
PROVIDERS: ATTEND Urology
DX: N20.0 Calculus of kidney (principal); E78.5 Hyperlipidemia, unspecified; H91.90 Unspecified hearing loss, unspecified ear; E03.9 Hypothyroidism, unspecified; N20.1 Calculus of ureter; Z80.0 Family history of malignant neoplasm of digestive organs; Z82.49 Family history of ischemic heart disease and other diseases of the circulatory system; Z80.1 Family history of malignant neoplasm of trachea, bronchus and lung; Z79.82 Long term (current) use of aspirin; Z79.899 Other long term (current) drug therapy

== ENCOUNTER → 2017-05-07 | Outpatient (CLI) | payer OTHER ==
[~2017-05-07] MED LIST changes: -ATROPINE SULFATE 0.1 MG/ML 5ML SYR IV PRN; -CIPROFLOXACIN / D5W 400 MG IV SCH; -DEXAMETHASONE SOD INJ 4 MG/ML VIAL IV PRN; -EpHEDrine SULFATE INJ 50 MG/ML AMP IV PRN; -FENTANYL CITRATE INJ 50 MCG/1 ML 2 ML VIAL IV PRN; -HYDROmorphone INJ 1 MG/ML SYR IV PRN; -KETOROLAC TROMETHAMINE 15 MG/ML VIAL IV. PRN; -LABETALOL HCL IV 5 MG/ML 20ML IV PRN; -LACTATED RINGER'S 1000ML 1,000 ML IV SCH; -METOCLOPRAMIDE HCL INJ 5 MG/ML 2 ML VIAL IV PRN; -MoRPHine SULFATE 10 MG/ML CARP/VIAL IV PRN; -ONDANSETRON INJ 2 MG/ML 2 ML VIAL IV PRN; -PHENYLEPHRINE 100MCG/ML 5ML SYR IV PRN
--- NOTE | 2017-05-07 16:44 | DIAGNOSTIC IMAGING REPORT ---
KUB CLINICAL HISTORY: N20.0 Nephrolithiasis COMPARISON STUDY: 04/25/2017 FINDINGS: There is no pathologic bowel dilatation. The renal shadows are partially obscured overlying bowel gas and fecal material. There is a 7 mm calcification at the L2-3 level to the left of midline. This may represent a proximal left ureteral calculus. There is a 5 mm opacity at the level the left pelvic basin. It is unclear if this represents a pelvic basin calcification or enteric contents. IMPRESSION: 1. 7 mm calcification at the L2-3 level to the left of midline. This may represent a proximal left ureteral calculus. 2. 5 mm left pelvic basin calcification versus enteric contents. Electronically signed by: Palomo Moore M.D. 05/07/2017 4:43 PM Dictated Date/Time: 05/07/2017 4:40 PM
== END | disposition home or self-care (01) ==
LOC: C.RAD 16:16
PROVIDERS: ATTEND Urology
DX: N20.0 Calculus of kidney (principal)

== ENCOUNTER → 2017-05-08 | Outpatient (CLI) | payer OTHER | END | disposition home or self-care (01) | LOC: C.LABSPEC 16:55 | PROVIDERS: ATTEND Urology | DX: N20.0 Calculus of kidney (principal) ==

== ENCOUNTER → 2017-05-13 | Outpatient (CLI) | payer OTHER ==
[~2017-05-13] MED LIST changes: -OXYC-57 PO
[2017-05-13 15:27] LABS: BLOOD UREA NITROGEN 16 mg/dl (7-18); BUN/CREATININE RATIO 13.7 (10-20); CALCIUM 9.5 mg/dl (8.5-10.1); CARBON DIOXIDE 31 mmol/L (21-32); CHLORIDE 104 mmol/L (98-107); GLUCOSE 67 mg/dl (70-99); POTASSIUM 4.4 mmol/L (3.5-5.1); SODIUM 140 mmol/L (136-145)
[2017-05-13 16:56] LABS: BASO % 0.9 %; BASO ABS # 0.04 K/uL (0-0.2); COMPLETE YES; EOS % 4.2 %; HEMATOCRIT 42.6 % (42-52); IG% 0.2 %; LYMPH ABS # 1.55 K/uL (1.2-3.4); MEAN CORPUSCULAR HEMOGLOBIN 31.7 pg (25-34); MEAN PLATELET VOLUME 10.5 fL (7.4-10.4); MONO % 10.7 %; PLATELET COUNT 258 K/uL (130-400); RED BLOOD COUNT 4.58 M/uL (4.7-6.1); WHITE BLOOD COUNT 4.56 K/uL (4.8-10.8)
== END | disposition home or self-care (01) ==
LOC: C.LABBC 10:39
PROVIDERS: ATTEND Urology
DX: N20.0 Calculus of kidney (principal)

== ENCOUNTER → 2017-05-27 | Day surgery (SDC) | payer OTHER ==
[2017-05-09 13:30] VITALS: BMI 23.0
[~2017-05-27] VITALS: Ht 180.3 cm; Wt 77.3 kg
[~2017-05-27] MED LIST changes: +ACETAMINOPHEN 325 MG TAB PO PRN; +ATROPINE SULFATE 0.1 MG/ML 5ML SYR IV PRN; +CIPROFLOXACIN / D5W 400 MG IV SCH; +CONRAY 30% 150ML BOTTLE INSTIL ONE; +DEXAMETHASONE SOD INJ 4 MG/ML VIAL ONE; +EpHEDrine SULFATE INJ 50 MG/ML AMP IV PRN; +FENTANYL CITRATE INJ 50 MCG/1 ML 2 ML VIAL IV PRN; +FENTANYL CITRATE INJ 50 MCG/1 ML 2 ML VIAL ONE; +KETOROLAC TROMETHAMINE 15 MG/ML VIAL IV. STA; +LACTATED RINGER'S 1000ML 1,000 ML IV SCH; +LIDOCAINE HCL 2% 2 ML VIAL (20MG/ML) ONE; +MIDAZOLAM HCL 1 MG/ML 2ML VIAL ONE; +ONDANSETRON INJ 2 MG/ML 2 ML VIAL IV PRN; +ONDANSETRON INJ 2 MG/ML 2 ML VIAL ONE; +OXYCODONE/ACETAMINOPHEN 5-325 TAB PO PRN; +PROPOFOL IV EMULSION 10 MG/ML 20 ML VIAL IV ONE; +SODIUM CHLORIDE 0.9% 1000ML 1,000 ML IV SCH; +TAMSULOSIN HCL 0.4 MG CAP PO ONE
[2017-05-27 10:28] VITALS: BP 118/69; PULSE 60; TEMP 36.5; O2SAT 98; Ht 180.3 cm; Wt 77.3 kg
--- NOTE | 2017-05-27 13:08 | [facility] Post Operative Brief Note ---
Immediate Operative Summary Operative Date May 27, 2017. Pre-Operative Diagnosis Left-sided Nephrolithiasis Post-Operative Diagnosis Left-sided Nephrolithiasis Procedure(s) Performed Cystoscopy, Left Ureteroscopy, Laser Lithotripsy, Ureteral Dilation, Insertion of Left Ureteral Stent (6 Tajik by 26 cm) Surgeon Dr. Cuadra Hvac Manager Surgeon(s) none Estimated Blood Loss 5 ml Findings Left ureteral stricture; left renal calculus Specimens none per surgeon Drains 6 [place] by 26 cm Anesthesia Gen. Complication(s) None Disposition Recovery Room / PACU
--- NOTE | 2017-05-27 13:13 | Discharge Instructions ---
Discharge Instructions Date of Service May 27, 2017. Admission Reason for Admission: Stones Discharge Discharge Diagnosis / Problem: stones Discharge Goals Goal(s): Decrease discomfort, Improve function, Increase independence, Improve disease control Activity Recommendations Activity Limitations: resume your previous activity Lifting Limitations: none Exercise/Sports Limitations: none May Resume Sexual Activity: when tolerated Shower/Bathe: no limitations Driving or Machine Use: resume 1 day after discharge . Instructions / Follow-Up Instructions / Follow-Up Please come to Dr. Cuadra's office on 06/05/17 at 3:45 to have your stent removed. Discharge Diet Recommended Diet: Regular Diet Procedures Procedures Performed: Cystoscopy, Left Ureteroscopy, Laser Lithotripsy, Ureteral Dilation, Insertion of Left Ureteral Stent (6 Romansh by 26 cm) Pending Studies Studies pending at discharge: no Laboratory Results Lipid Panel Test 02/25/17 10:00 Range/Units Triglycerides Level 65 0-150 mg/dl Cholesterol Level 210 H 0-200 mg/dl HDL Cholesterol 49 mg/dl Cholesterol/HDL Ratio 4.3 LDL Cholesterol, Calculated 148 mg/dl Medical Emergencies . Who to Call and When: Medical Emergencies: If at any time you feel your situation is an emergency, please call 911 immediately. . Non-Emergent Contact Non-Emergency issues call your: Urologist Call Non-Emergent contact if: you have a fever, temperature is above 101.5 . . "Provider Documentation" section prepared by Matthew Blakely. . VTE Core Measure Inpt VTE Proph given/why not?: Treatment not indicated [place] Drug Monitoring [place] Search Results: patient reviewed within database, no issues identified
--- NOTE | 2017-05-27 13:16 | DIAGNOSTIC IMAGING REPORT ---
INTRAOPERATIVE RADIOGRAPHS CLINICAL HISTORY: Left-sided laser lithotripsy. Fluoroscopy time: 123 seconds. FINDINGS: 5 spot fluoroscopic views of the left abdomen from a lithotripsy and ureteral stent placement procedure are presented. Initial image shows cannulation of the left ureter. A lithotripsy device is noted. The final image shows the proximal end of a left ureteral stent being placed. IMPRESSION: Intraoperative images from a lithotripsy and left-sided ureteral stent placement procedure. See operative report for detailed findings. Electronically signed by: Agustin Matute M.D. 05/27/2017 1:15 PM Dictated Date/Time: 05/27/2017 1:14 PM
--- NOTE | 2017-05-27 13:21 | [facility] Operative Report ---
Operative Report Operative Date May 27, 2017. Pre-Operative Diagnosis Left-sided Nephrolithiasis Post-Operative Diagnosis Left-sided Nephrolithiasis Procedure(s) Performed Cystoscopy, Left Ureteroscopy, Laser Lithotripsy, Ureteral Dilation, Insertion of Left Ureteral Stent (6 Vietnamese by 26 cm) Surgeon Dr. Cuadra Voice Teacher Surgeon(s) none Estimated Blood Loss 5 ml Findings Left ureteral stricture; left renal calculus Specimens none per surgeon Drains 6 Vietnamese by 26 cm Anesthesia Gen. Complication(s) None Disposition Recovery Room / PACU Indications Stones Description of Procedure Raúl Esquivel was identified in the preoperative holding area, appropriate informed consents were reviewed and completed and the patient was transported to the operating suite. Upon arrival he received appropriate preoperative antibiotics in the form of ciprofloxacin. General anesthesia was induced. He was placed in dorsal lithotomy position where he was sterilely prepped and draped in standard fashion. I gently inserted a 22 Vietnamese cystoscope with 30 lens. There is no evidence of stricture disease. Prostate was modestly enlarged. Full inspection of the bladder was carried out with 30 and 70 lenses, there were no mucosal abnormalities appreciated. Ureteral orifices weren't orthotopic position. I subsequently turned my attention to the left ureteral orifice. I cannulated this orifice with a 6 Vietnamese open-ended catheter and a sensor wire. The wire advanced the kidney without difficulty. Of note there were no distal ureteral opacities appreciated on fluoroscopy. His preoperative imaging was conducted several weeks ago with KUB and he appeared to have a distal ureteral stone on that imaging. The stone was not appreciated today. I subsequently passed a semirigid ureteroscope alongside the wire and guided into the distal ureter. I inspected the distal ureter up to the level of blood vessels identifying no calculi. I subsequently placed a second wire through the working channel of the scope, and advanced it into the kidney under fluoroscopy. I then attempted to pass a flexible ureteroscope over 1 wire while reserving the second wire as a safety wire. Just above the levels of the vessels encountered resistance. I attached the camera and inspected at that area. I saw no calculi in this area. There were no fluoroscopic opacities in this area. There was a tight band of tissue consistent with a ureteral stricture. Subsequently withdrew the scope replacing the wire. I performed a balloon dilation in this area. I observed and appropriate opening of this area under fluoroscopic guidance. I then repassed the scope and successfully bypassed this area. A full renoscopy was then carried out. A stone was visualized in the renal pelvis. I was able to push this into a posterior calyx for easier treatment. I saw no other stones within the kidney. I subsequently passed a 400 laser fiber and began laser lithotripsy. I fragment the stone successfully treating all stones to a size deemed safe for spontaneous passage. I then performed a very careful exit ureteroscopy. I specifically evaluated the area of the prior balloon dilation. There is no evidence of significant trauma, there also were no stones. The remaining part of the ureter appeared very healthy. I concluded my case by placing a 6 Vietnamese by 26 synovator double- J ureteral stent. I observed a good curl in the kidney as well as the bladder. I then decompressed the bladder and concluded the case. Patient was extended and taken to the PACU in stable condition. I attest to the content of the Intraoperative Record and any orders documented therein. Any exceptions are noted below.
--- NOTE | 2017-05-27 13:42 | Anesthesiology Progress Note ---
Anesthesia Post Op Note Date & Time May 27, 2017 at 13:42 Vital Signs Pain Intensity: 0 Vital Signs Past 12 Hours Date Time Temp Pulse Resp B/P (MAP) Pulse Ox O2 Delivery O2 Flow Rate FiO2 05/27/17 13:30 56 16 142/76 100 Oxymask 5 05/27/17 13:20 57 10 153/95 100 Oxymask 10 05/27/17 13:11 36.7 56 10 133/86 100 Oxymask 10 05/27/17 10:28 36.5 60 18 118/69 (85) 98 Room Air Notes Mental Status: alert / awake / arousable, participated in evaluation Pt Amnestic to Procedure: Yes Nausea / Vomiting: adequately controlled Pain: adequately controlled Airway Patency, RR, SpO2: stable & adequate BP & HR: stable & adequate Hydration State: stable & adequate Anesthetic Complications: no major complications apparent
[2017-05-27 13:55] VITALS: BP 161/80; PULSE 55; TEMP 36.6; O2SAT 100
[2017-05-27 14:30] VITALS: BP 171/82; PULSE 58; O2SAT 100
[2017-05-27 15:05] VITALS: BP 164/77; PULSE 56; TEMP 36.6; O2SAT 98
== END | disposition home or self-care (01) ==
LOC: C.ACU 10:08
PROVIDERS: ATTEND Urology
DX: N20.0 Calculus of kidney (principal); E78.5 Hyperlipidemia, unspecified; E03.9 Hypothyroidism, unspecified; Z87.81 Personal history of (healed) traumatic fracture; Z87.442 Personal history of urinary calculi; Z90.89 Acquired absence of other organs; Z80.0 Family history of malignant neoplasm of digestive organs; Z82.49 Family history of ischemic heart disease and other diseases of the circulatory system; Z80.1 Family history of malignant neoplasm of trachea, bronchus and lung; N52.9 Male erectile dysfunction, unspecified; Z79.82 Long term (current) use of aspirin; R00.2 Palpitations

== ENCOUNTER → 2017-06-04 | Outpatient (CLI) | payer OTHER ==
[~2017-06-04] MED LIST changes: -ACETAMINOPHEN 325 MG TAB PO PRN; -ATROPINE SULFATE 0.1 MG/ML 5ML SYR IV PRN; -CIPROFLOXACIN / D5W 400 MG IV SCH; -CONRAY 30% 150ML BOTTLE INSTIL ONE; -DEXAMETHASONE SOD INJ 4 MG/ML VIAL ONE; -EpHEDrine SULFATE INJ 50 MG/ML AMP IV PRN; -FENTANYL CITRATE INJ 50 MCG/1 ML 2 ML VIAL IV PRN; -FENTANYL CITRATE INJ 50 MCG/1 ML 2 ML VIAL ONE; -KETOROLAC TROMETHAMINE 15 MG/ML VIAL IV. STA; -LACTATED RINGER'S 1000ML 1,000 ML IV SCH; -LIDOCAINE HCL 2% 2 ML VIAL (20MG/ML) ONE; -MIDAZOLAM HCL 1 MG/ML 2ML VIAL ONE; -ONDANSETRON INJ 2 MG/ML 2 ML VIAL IV PRN; -ONDANSETRON INJ 2 MG/ML 2 ML VIAL ONE; -OXYCODONE/ACETAMINOPHEN 5-325 TAB PO PRN; -PROPOFOL IV EMULSION 10 MG/ML 20 ML VIAL IV ONE; -SODIUM CHLORIDE 0.9% 1000ML 1,000 ML IV SCH; -TAMSULOSIN HCL 0.4 MG CAP PO ONE
--- NOTE | 2017-06-04 12:04 | DIAGNOSTIC IMAGING REPORT ---
KUB HISTORY: 72 years Male N20.0 [id number] COMPARISON: KUB 05/27/2017 TECHNIQUE: KUB radiograph FINDINGS: Left-sided ureteral stent is again noted with proximal tip now projected somewhat laterally. Left-sided nephrolithiasis are again seen with suspected small calculus along the proximal portion of the left ureteral stent. No definite right-sided ureteral calculi are seen. Bowel gas pattern is nonobstructive. No fracture. There is mild convex right curvature of the lumbar spine. IMPRESSION: 1. Left-sided ureteral stent in place with persistent left nephrolithiasis. 2. Suspected small calculus along the proximal course of the ureteral stent. The above report was generated using voice recognition software. It may contain grammatical, syntax or spelling errors. Electronically signed by: Brendon Raymond M.D. 06/04/2017 12:03 PM Dictated Date/Time: 06/04/2017 12:00 PM
== END | disposition home or self-care (01) ==
LOC: C.RAD 11:41
PROVIDERS: ATTEND Urology
DX: N20.0 Calculus of kidney (principal)

== ENCOUNTER → 2017-06-20 | Outpatient (CLI) | payer OTHER ==
[~2017-06-20] MED LIST changes: -PHEN-775 PO
[2017-06-20 13:56] LABS: BLOOD UREA NITROGEN 15 mg/dl (7-18); BUN/CREATININE RATIO 13.4 (10-20); CARBON DIOXIDE 26 mmol/L (21-32); CHLORIDE 107 mmol/L (98-107); GLUCOSE 82 mg/dl (70-99); POTASSIUM 4.3 mmol/L (3.5-5.1); SODIUM 139 mmol/L (136-145); URIC ACID 6.4 mg/dl (2.6-7.2)
--- NOTE | 2017-06-26 06:31 | CODING QUERY MEDICAL NECESSITY ---
SUPPORTING DIAGNOSIS NEEDED A supporting diagnosis is required for the test/procedure performed on this patient in order for us to be reimbursed by the patient's insurance. Please provide a supporting diagnosis for the following test/procedure listed below next to the test name along with your signature. *If there is no additional diagnosis for this patient that would support the following test/procedure please document that below next to the test/procedure. Test(s)/Procedure(s) that require a supporting diagnosis: * VITAMIN D, 25- HYDROXY DIAGNOSIS: Provider Signature: Date: Thank you Marlys Alaniz [employer] Information Management Once completed, please kindly fax back to [phone] For questions please call [phone]
== END | disposition home or self-care (01) ==
LOC: C.LABBC 10:07
PROVIDERS: ATTEND Internal Medicine
DX: N20.0 Calculus of kidney (principal); E55.9 Vitamin D deficiency, unspecified

== ENCOUNTER → 2017-08-20 | Outpatient (CLI) | payer OTHER ==
--- NOTE | 2017-08-20 12:51 | DIAGNOSTIC IMAGING REPORT ---
(CHEST) THORAX WITHOUT CLINICAL HISTORY: 72 years-old Male presenting with R91.1 Pulmonary nodule seen on imaging [id number]. TECHNIQUE: Multidetector CT imaging of the chest was performed without the use of intravenous contrast. IV contrast: None. A dose lowering technique was used consistent with the principles of ALARA (as low as reasonably achievable). COMPARISON: Chest x-ray from 03/05/[address] from 02/27/2017. CT DOSE (mGy.cm): The estimated cumulative dose is 338.02 mGy.cm. FINDINGS: Emergency Management System Director topogram: Unremarkable. On soft tissue windows, normal thyroid and thoracic inlet. No axillary, supraclavicular, or mediastinal lymphadenopathy. Evaluation of the herve limited without intravenous contrast. Atherosclerosis of the aorta. Aortic valve calcification. Normal heart size. No pericardial or pleural effusion. Cholelithiasis. Mild gastric distention. On lung windows, redemonstration of the right lower lobe solid pulmonary nodule, which now measures 6 mm, previous 7 mm (series 4 image 235). Subpleural solid 3 mm nodule in the right lower lobe (series 4 image 203). Triangular solid 5 mm pulmonary nodule in the left lower lobe (series 4 image 247), unchanged. Solid 4 mm nodule in the left lower lobe (series 4 image 166). Biapical calcified pleural plaques with associated subpleural consolidation. This has a subpleural nodular appearance bilaterally, greater at the right apex (series 4 image 68). Airways patent. On bone windows, normal osseous structures. IMPRESSION: 1. Multiple solid pulmonary nodules bilaterally, measuring up to 6 mm. The nodules at the lung bases that were previously visualized on CT of the abdomen and pelvis from February have not grown. However, additional pulmonary nodules now visualized, which were previously out side of the [id number]. Follow-up per Walter Society 2017 recommendations below. This study can serve as a baseline for an initial 3-6 month follow-up. 2. Calcified pleural plaques with subpleural consolidation, also believed cicatrizing atelectasis. The presence of calcified pleural plaques could suggest a history of asbestos exposure. Attention to the lung apices on follow-up to confirm that the subpleural consolidation is only atelectasis. Please refer to below summary of Fleischner Society 2017 recommendations for follow-up of incidental CT nodules (H Alex et al. Guidelines for management of incidental pulmonary nodules detected on CT images: From the Fleischner Society 2017. Radiology 2017; 284: 228-243.) SOLID NODULES Single nodule; size < 6 mm * Low risk patients: No routine follow-up * High risk patients: Optional CT at 12 months Single nodule; size 6-8 mm * Low risk patients: CT at 6-12 months, then consider CT at 18-24 months * High risk patients: CT at 6-12 months, then at 18-24 months Single nodule; size > 8 mm * Either low or high risk patients: Considered CT at 3 months, PET/CT, or tissue sampling Multiple nodules; size < 6 mm * Low risk patients: No routine follow up * High risk patients: Optional CT at 12 months Multiple nodules; size 6-8 mm * Low risk patients: CT at 3-6 months, then consider CT at 18-24 months * High risk patients: CT at 3-6 months, then at 18-24 months Multiple nodules; size > 8 mm * Low risk patients: CT at 3-6 months, then consider at 18-24 months * High risk patients: CT at 3-6 months, then at 18-24 months Note: These guidelines apply to incidental nodules. These guidelines do not apply to patients younger than 35 years, immunocompromised patients, or patients with cancer. * Low risk patients: Minimal or absent history of smoking and/or other known risk factors * High risk patients: History of smoking, exposure to other carcinogens, emphysema, fibrosis, upper lobe location, family history of lung cancer, etc. * If a nodule up to 8 mm is partly solid or is ground glass, further follow-up is required after 24 months to exclude possible slow growing adenocarcinoma. SUBSOLID NODULES Single ground-glass nodule * Nodule size < 6 mm: No routine follow-up * Nodule size > or = 6 mm: CT at 6-12 months to confirm persistence, then CT every 2 years until 5 years Single part-solid nodule * Nodule size < 6 mm: No routine follow-up * Nodules size > or = 6 mm: CT at 3-6 months to confirm persistence. If unchanged and solid component remains < 6 mm, annual CT should be performed for 5 years Multiple nodules * Nodule size < 6 mm: CT at 3-6 months. If stable, consider CT at 2 and 4 years. * Nodules size > or = 6 mm: CT at 3-6 months. Subsequent management based on the most suspicious nodule(s) Electronically signed by: Zuhair Molina M.D. 08/20/2017 12:50 PM Dictated Date/Time: 08/20/2017 12:41 PM
== END | disposition home or self-care (01) ==
LOC: C.CTS 12:31
PROVIDERS: ATTEND Internal Medicine
DX: R91.1 Solitary pulmonary nodule (principal)

== ENCOUNTER → 2017-08-21 | Outpatient (CLI) | payer OTHER ==
[2017-08-21 13:54] LABS: HEMATOCRIT 44.1 % (42-52); MEAN CELL VOLUME 91.9 fL (80-100); MEAN CORPUSCULAR HEMOGLOBIN 31.7 pg (25-34); MEAN CORPUSCULAR HGB CONC 34.5 g/dl (32-36); MEAN PLATELET VOLUME 10.3 fL (7.4-10.4); PLATELET COUNT 216 K/uL (130-400); WHITE BLOOD COUNT 4.51 K/uL (4.8-10.8)
[2017-08-21 13:58] LABS: BASO % 0.4 %; BASO ABS # 0.02 K/uL (0-0.2); COMPLETE YES; EOS % 4.2 %; IG% 0.2 %; LYMPH % 37.7 %; MONO % 9.1 %; NEUT % 48.4 %
[2017-08-21 14:07] LABS: ALT/SGPT 18 U/L (12-78); BLOOD UREA NITROGEN 12 mg/dl (7-18); BUN/CREATININE RATIO 10.7 (10-20); CALCIUM 9.3 mg/dl (8.5-10.1); CARBON DIOXIDE 27 mmol/L (21-32); CHLORIDE 105 mmol/L (98-107); CHOLESTEROL 184 mg/dl (0-200); GLUCOSE 87 mg/dl (70-99); POTASSIUM 4.1 mmol/L (3.5-5.1); SODIUM 138 mmol/L (136-145); TRIGLYCERIDES 67 mg/dl (0-150); VERY LOW DENSITY LIPOPROT CALC 13 mg/dl
[2017-08-21 14:10] LABS: ALB/GLOB RATIO 1.1 (0.9-2); ALKALINE PHOSPHATASE 56 U/L (45-117); AST/SGOT 17 U/L (15-37); CHOLESTEROL/HDL RATIO 3.8; HDL CHOLESTEROL 49 mg/dl; LDL CHOLESTEROL CALCULATED 122 mg/dl
== END | disposition home or self-care (01) ==
LOC: C.LABBC 10:18
PROVIDERS: ATTEND Internal Medicine
DX: E78.5 Hyperlipidemia, unspecified (principal); N20.0 Calculus of kidney

== ENCOUNTER 2017-11-29 15:24 | Observation (INO) | payer OTHER ==
[~2017-11-29] VITALS: Ht 180.3 cm; Wt 77.5 kg
[2017-11-29] MEDS ORDERED: OPTIRAY 320 IV PRN (16:15)
[2017-11-29 16:16] LABS: BASO % 0.6 %; BASO ABS # 0.03 K/uL (0-0.2); EOS % 5.7 %; EOS ABS # 0.31 K/uL (0-0.5); HEMATOCRIT 43.5 % (42-52); HEMOGLOBIN 14.8 g/dL (14.0-18.0); IG# 0.01 K/uL (0.00-0.02); LYMPH % 31.8 %; LYMPH ABS # 1.72 K/uL (1.2-3.4); MEAN CELL VOLUME 91.6 fL (80-100); MEAN CORPUSCULAR HEMOGLOBIN 31.2 pg (25-34); MEAN PLATELET VOLUME 10.3 fL (7.4-10.4); MONO % 8.1 %; MONO ABS # 0.44 K/uL (0.11-0.59); NEUT % 53.6 %; PLATELET COUNT 217 K/uL (130-400); RED CELL DISTRIBUTION WIDTH CV 13.5 % (11.5-14.5); RED CELL DISTRIBUTION WIDTH SD 45.1 fL (36.4-46.3); WHITE BLOOD COUNT 5.41 K/uL (4.8-10.8)
[2017-11-29 16:25] LABS: ISTAT CREATININE 1.2 mg/dl (0.6-1.3); ISTAT IONIZED CALCIUM 1.27 mmol/l (1.12-1.32); ISTAT POTASSIUM 4.1 mEq/L (3.3-5.0)
[2017-11-29 16:26] LABS: PTT PATIENT 24.5 SECONDS (21.0-31.0)
[2017-11-29 16:38] LABS: CALCIUM 9.6 mg/dl (8.5-10.1); CREATININE 1.13 mg/dl (0.60-1.40)
--- NOTE | 2017-11-29 16:50 | DIAGNOSTIC IMAGING REPORT ---
(CHEST FOR PE) ANGIO WITH CT DOSE: 389.28 mGy.cm HISTORY: Chest pain dyspnea TECHNIQUE: Multiaxial CT images of the chest were performed following the intravenous administration of contrast to evaluate the pulmonary arteries. Maximal intensity projection images were also obtained. A dose lowering technique was utilized adhering to the principles of ALARA. COMPARISON STUDY: 08/20/2017 FINDINGS: There is a normal caliber thoracic aorta with no evidence for dissection. There is no evidence for pulmonary embolus. No pleural effusions. No pneumothorax. The liver and spleen are unremarkable. No mediastinal or hilar lymphadenopathy. The central airways are patent. The lungs are clear. Scattered parenchymal nodules are stable. There are no focal infiltrates. IMPRESSION: No evidence for pulmonary embolus. Lungs are clear. Several scattered parenchymal nodules considered stable as compared to the prior study. The above report was generated using voice recognition software. It may contain grammatical, syntax or spelling errors. Electronically signed by: Shiraz Islas M.D. 11/29/2017 4:48 PM Dictated Date/Time: 11/29/2017 4:41 PM
--- NOTE | 2017-11-29 17:46 | EMERGENCY ROOM VISIT NOTE ---
History Report prepared by Marichuyibhugh: Shonda Lakhani Under the Supervision of: Dr. Kamaljit Degroot M.D. First contact with patient: 15:46 Chief Complaint: CHEST PAIN Stated Complaint: CHEST/BACK PAIN Nursing Triage Summary: Mid chest pain going towards the back for four to five days that comes and goes. History of Present Illness The patient is a 72 year old male who presents to the Emergency Room with complaints of intermittent central chest pain beginning 4 days ago. The patient states his pain radiates straight to his back and it is intermittently either sharp or dull. He denies any radiation to his arms or around his sides. He notes some tightness, shortness of breath, and episodes of dizziness but he denies any sweating, or pain or swelling to his legs. The patient states that certain positions worsen his pain; however, he notes exerting himself does not worsen his pain. The patient has not had and recent travel and he does not smoke. Presently, the patient denies any chest pain Source of History: patient Onset: 4 days ago Position: chest Quality: sharp, dull Modifying Factors (Worsening): other (positional) Associated Symptoms: + chest pain, + SOB, No diaphoresis Review of Systems See HPI for pertinent positives & negatives. A total of 10 systems reviewed and were otherwise negative. Past Medical & Surgical Medical Problems: (1) Calculus Of Kidney (2) Hyperlipidemia Nec/Nos Family History No pertinent family history Social History Smoking Status: Former Smoker Alcohol Use: none Drug Use: none Housing Status: lives with family Occupation Status: unemployed Current/Historical Medications Scheduled Levothyroxine Sodium (Levothyroxine Sodium), 50 MCG PO QAM Allergies Coded Allergies: No Known Allergies (Unverified , 11/29/17) Physical Exam Vital Signs Date Time Temp Pulse Resp B/P (MAP) Pulse Ox O2 Delivery O2 Flow Rate FiO2 11/29/17 16:39 66 20 122/71 98 Room Air 11/29/17 16:09 99 Room Air 11/29/17 16:00 64 11/29/17 15:46 98 Room Air 11/29/17 15:40 36.8 63 13 139/71 98 Room Air 11/29/17 15:40 98 Room Air Physical Exam Constitutional: Vital signs reviewed. Eyes: Pupils are equal round reactive to light. Conjunctiva are noninjected. ENT: Pharynx is clear without erythema or exudate. Mucous membranes are moist. Neck supple without meningeal signs. Respiratory: Clear to auscultation bilaterally. Breath sounds are equal bilaterally. Cardiovascular: Regular rate and rhythm. No rubs or gallops. GI: Soft, nondistended and nontender. Bowel sounds are present. Musculoskeletal: No peripheral edema. No lower extremity tenderness. Integumentary: No cyanosis. Neurological: The patient is awake and alert. No focal deficits. Psychiatric: Normal affect. Medical Decision & Procedures ER Provider Diagnostic Interpretation: Radiology results as stated below per my review and the radiologist's interpretation: (CHEST FOR PE) ANGIO WITH FINDINGS: There is a normal caliber thoracic aorta with no evidence for dissection. There is no evidence for pulmonary embolus. No pleural effusions. No pneumothorax. The liver and spleen are unremarkable. No mediastinal or hilar lymphadenopathy. The central airways are patent. The lungs are clear. Scattered parenchymal nodules are stable. There are no focal infiltrates. IMPRESSION: No evidence for pulmonary embolus. Lungs are clear. Several scattered parenchymal nodules considered stable as compared to the prior study. The above report was generated using voice recognition software. It may contain grammatical, syntax or spelling errors. Electronically signed by: Shiraz Islas M.D. Laboratory Results 11/29/17 15:59 Red Blood Count 4.75, Mean Corpuscular Volume 91.6, Mean Corpuscular Hemoglobin 31.2, Mean Corpuscular Hemoglobin Concent 34.0, Mean Platelet Volume 10.3, Neutrophils (%) (Auto) 53.6, Lymphocytes (%) (Auto) 31.8, Monocytes (%) (Auto) 8.1, Eosinophils (%) (Auto) 5.7, Basophils (%) (Auto) 0.6, Neutrophils # (Auto) 2.90, Lymphocytes # (Auto) 1.72, Monocytes # (Auto) 0.44, Eosinophils # (Auto) 0.31, Basophils # (Auto) 0.03 11/29/17 15:59 Test 11/29/17 15:59 11/29/17 16:06 White Blood Count 5.41 K/uL (4.8-10.8) Red Blood Count 4.75 M/uL (4.7-6.1) Hemoglobin 14.8 g/dL (14.0-18.0) Hematocrit 43.5 % (42-52) Mean Corpuscular Volume 91.6 fL (80-100) Mean Corpuscular Hemoglobin 31.2 pg (25-34) Mean Corpuscular Hemoglobin Concent 34.0 g/dl (32-36) Platelet Count 217 K/uL (130-400) Mean Platelet Volume 10.3 fL (7.4-10.4) Neutrophils (%) (Auto) 53.6 % Lymphocytes (%) (Auto) 31.8 % Monocytes (%) (Auto) 8.1 % Eosinophils (%) (Auto) 5.7 % Basophils (%) (Auto) 0.6 % Neutrophils # (Auto) 2.90 K/uL (1.4-6.5) Lymphocytes # (Auto) 1.72 K/uL (1.2-3.4) Monocytes # (Auto) 0.44 K/uL (0.11-0.59) Eosinophils # (Auto) 0.31 K/uL (0-0.5) Basophils # (Auto) 0.03 K/uL (0-0.2) RDW Standard Deviation 45.1 fL (36.4-46.3) RDW Coefficient of Variation 13.5 % (11.5-14.5) Immature Granulocyte % (Auto) 0.2 % Immature Granulocyte # (Auto) 0.01 K/uL (0.00-0.02) Prothrombin Time 10.4 SECONDS (9.0-12.0) Prothromb Time International Ratio 1.0 (0.9-1.1) Activated Partial Thromboplast Time 24.5 SECONDS (21.0-31.0) Partial Thromboplastin Ratio 0.9 Est Creatinine Clear Calc Drug Dose 61.1 ml/min Estimated GFR () 73.8 Estimated GFR (Non- 63.7 BUN/Creatinine Ratio 13.8 (10-20) Calcium Level 9.6 mg/dl (8.5-10.1) Bedside Hemoglobin 13.9 g/dl (14.0-18.0) Bedside Hematocrit 41 % (42-52) Bedside Sodium 143 mEq/L (135-144) Bedside Potassium 4.1 mEq/L (3.3-5.0) Bedside Chloride 101 mEq/L (101-112) Bedside Total CO2 28 mEq/l (24-31) Anion Gap 19.0 mmol/L (16-25) Bedside Blood Urea Nitrogen 16 mg/dl (7-18) Bedside Creatinine 1.2 mg/dl (0.6-1.3) Bedside Glucose (other) 106 mg/dl (70-99) Bedside Ionized Calcium (Carolyn) 1.27 mmol/l (1.12-1.32) Bedside Troponin I < 0.030 ng/ml (0-0.045) Laboratory results as reviewed by me. ECG Indication: chest pain Rate (beats per minute): 63 Rhythm: normal sinus Findings: no acute ischemic change, no ectopy ED Course 1548: The patient was evaluated in room A12B. A complete history and physical exam was performed. 1656: I updated the patient on his test results. He is not presently having any chest pain. I recommended hospitalization and he is agreeable. 1711: I spoke with Dr. Foster of [facility]. We discussed the patient and his results. The patient will be further evaluated by her. Medical Decision This is a 72-year-old male who presents with chest pain. Differential diagnosis includes unstable angina, [place], aortic dissection, pulmonary embolism, esophagitis. I did perform a limited focused review of portions of the patient' s old chart on the electronic medical record. The patient has had no recent pertinent visits to this hospital. I did evaluate the patient as noted above. The patient is presenting with intermittent chest pain for the past 3-4 days. He states sometimes is worse with position but we cannot reproduce it here with movement. IV access was established. The patient was placed on a continuous manager cardiac. I did order and personally review the patient's 12-lead EKG and chest x-ray as described above. I did order and review the patient's blood work as noted in the electronic medical record. I did order a CT of the chest. I did review the images myself as well as the radiology report as described above. There is no evidence of dissection or PE. I did discuss the test results with the patient. I did recommend hospitalization for repeat cardiac enzymes and further evaluation. I did discuss case with the hospitalist and shelter case manager. Medication Reconcilliation Current Medication List: was personally reviewed by me Blood Pressure Screening Patient's blood pressure: Elevated blood pressure Blood pressure disposition: Referred to PCP Consults Time Called: 1706 Consulting Physician: Dr. Foster-[facility] Returned Call: [address] Foster of [facility]. We discussed the patient and his results. The patient will be further evaluated by her. Impression Primary Impression: Acute chest pain Scribe Attestation The scribe's documentation has been prepared under my direct and personally reviewed by me in its entirety. I confirm that the note above accurately reflects all work, treatment, procedures, and medical decision making performed by me. Departure Information Dispostion Being Evaluated By Hospitalist Referrals Pro,Isma Barnett M.D. (PCP) Patient Instructions [facility]
[2017-11-29] MEDS ORDERED: MAGNESIUM HYDROXIDE SUSP 30 ML UDC PO PRN (18:15)
[2017-11-29] MEDS ORDERED: ONDANSETRON INJ 2 MG/ML 2 ML VIAL IV PRN (18:15)
[2017-11-29] MEDS ORDERED: ACETAMINOPHEN 325 MG TAB PO PRN (18:15)
--- NOTE | 2017-11-29 18:20 | History and Physical ---
History & Physical Date & Time of Service: Nov 29, 2017 at 18:12 Chief Complaint: Chest/Back Pain Primary Care Physician: Isma Downs M.D. History of Present Illness Source: patient 72 y/o M c/o chest pain. Pt states he has been having intermittent chest pain x4 days. He only seems to have this when he is driving or when he is sitting on a particular piece of furniture in their home. The pain is substernal and goes straight to his back. No radiation to jaw, arms, or legs. He gets slightly SOB with this, but recovers quickly. He is also occasionally lightheaded with this, but this also does not last. Pt denies prior hx of chest pain. Pain stops spontaneously. He was concerned about possible heart issues, so he has been challenging himself with a flight of stairs, moving up and down it briskly 3-4x in succession and cannot cause sx to return. Pt is generally healthy. He was able to shovel snow recently without any issues at all. Pt has hx of lung nodules that were found incidentally on CT for renal stones. He has this followed and there has been no change. Pt denies fever, abd pain, n/v/c/d, LE pain or swelling. He has been eating without issue. Past Medical/Surgical History Hypothroid Renal stones Lung nodules Family History No pertinent family history Mother: Multiple CVAs, MA Sister: MA Uncle: MA Social History Smoking Status: Former Smoker (quit x50 yrs) Alcohol Use: occasionally (a drink every 2-3 weeks) Drug Use: none Occupational Status: unemployed Allergies Coded Allergies: No Known Allergies (Unverified , 11/29/17) Home Medications Scheduled Levothyroxine Sodium (Levothyroxine Sodium), 50 MCG PO QAM Review of Systems Pertinent positives and negatives reviewed in HPI--all others negative Physical Exam Vital Signs Date Time Temp Pulse Resp B/P (MAP) Pulse Ox O2 Delivery O2 Flow Rate FiO2 11/29/17 16:39 66 20 122/71 98 Room Air 11/29/17 16:09 99 Room Air 11/29/17 16:00 64 11/29/17 15:46 98 Room Air 11/29/17 15:40 36.8 63 13 139/71 98 Room Air 11/29/17 15:40 98 Room Air General Appearance: WD/WN, no apparent distress Head: normocephalic, atraumatic Eyes: normal inspection, EOMI, sclerae normal Respiratory/Chest: chest non-tender, normal breath sounds, no respiratory distress Cardiovascular: regular rate, rhythm, no edema Abdomen/GI: non tender, soft Extremities/Musculoskelatal: no calf tenderness, no pedal edema Neurologic/Psych: alert, normal mood/affect, oriented x 3 Skin: normal color, warm/dry Diagnostics Laboratory Results Results Past 24 Hours Test 11/29/17 15:59 11/29/17 16:06 Range/Units White Blood Count 5.41 4.8-10.8 K/uL Red Blood Count 4.75 4.7-6.1 M/uL Hemoglobin 14.8 14.0-18.0 g/dL Hematocrit 43.5 42-52 % Mean Corpuscular Volume 91.6 80-100 fL Mean Corpuscular Hemoglobin 31.2 25-34 pg Mean Corpuscular Hemoglobin Concent 34.0 32-36 g/dl Platelet Count 217 130-400 K/uL Mean Platelet Volume 10.3 7.4-10.4 fL Neutrophils (%) (Auto) 53.6 % Lymphocytes (%) (Auto) 31.8 % Monocytes (%) (Auto) 8.1 % Eosinophils (%) (Auto) 5.7 % Basophils (%) (Auto) 0.6 % Neutrophils # (Auto) 2.90 1.4-6.5 K/uL Lymphocytes # (Auto) 1.72 1.2-3.4 K/uL Monocytes # (Auto) 0.44 0.11-0.59 K/uL Eosinophils # (Auto) 0.31 0-0.5 K/uL Basophils # (Auto) 0.03 0-0.2 K/uL RDW Standard Deviation 45.1 36.4-46.3 fL RDW Coefficient of Variation 13.5 11.5-14.5 % Immature Granulocyte % (Auto) 0.2 % Immature Granulocyte # (Auto) 0.01 0.00-0.02 K/uL Prothrombin Time 10.4 9.0-12.0 SECONDS Prothromb Time International Ratio 1.0 0.9-1.1 Activated Partial Thromboplast Time 24.5 21.0-31.0 SECONDS Partial Thromboplastin Ratio 0.9 Sodium Level 140 136-145 mmol/L Potassium Level 4.0 3.5-5.1 mmol/L Chloride Level 105 98-107 mmol/L Carbon Dioxide Level 28 21-32 mmol/L Anion Gap 7.0 19.0 16-25 mmol/L Blood Urea Nitrogen 16 7-18 mg/dl Creatinine 1.13 0.60-1.40 mg/dl Est Creatinine Clear Calc Drug Dose 61.1 ml/min Estimated GFR () 73.8 Estimated GFR (Non- 63.7 BUN/Creatinine Ratio 13.8 10-20 Random Glucose 108 70-99 mg/dl Calcium Level 9.6 8.5-10.1 mg/dl Bedside Hemoglobin 13.9 14.0-18.0 g/dl Bedside Hematocrit 41 42-52 % Bedside Sodium 143 135-144 mEq/L Bedside Potassium 4.1 3.3-5.0 mEq/L Bedside Chloride 101 101-112 mEq/L Bedside Total CO2 28 24-31 mEq/l Bedside Blood Urea Nitrogen 16 7-18 mg/dl Bedside Creatinine 1.2 0.6-1.3 mg/dl Bedside Glucose (other) 106 70-99 mg/dl Bedside Ionized Calcium (Carolyn) 1.27 1.12-1.32 mmol/l Bedside Troponin I < 0.030 0-0.045 ng/ml Diagnostic Radiology CTA: neg for PE, lung nodules unchanged from CT on 08/20/17 Normal EKG Impression Assessment and Plan 72 y/o M who was admitted on 11/29 for observation for chest pain Chest pain: Uncertain etiology ACS seems less likely given no occurrence of sx with exertion EKG neg, trop neg x1 with serials pending CTA neg Pt with hx of lung nodules that are noted to be stable from prior imaging, possibly these are rubbing or have caused an irritation leading to positional chest pain?? Lyme pending given lightheadedness and unusual sx t/c ECHO vs outpt stress testing CBC, PRP WNL Hypothyroid: continue home meds Other: Full code. Pt is very clear that he would not want prolonged mechanical life support or tube feeding Reg diet Ambulation for DVT proph given likely short duration of admission Level of Care Telemetry Resuscitation Status FULL RESUSCITATION VTE Prophylaxis VTE Risk Assessment Done? Y/N: Yes Risk Level: Low
[2017-11-29 19:00] VITALS: BP 151/81; PULSE 65; TEMP 36.6; O2SAT 99; Ht 180.3 cm; Wt 77.5 kg
[2017-11-29 19:17] VITALS: BP 151/81; PULSE 56; TEMP 36.6; O2SAT 99
[2017-11-29] MEDS ORDERED: IV FLUIDS COMPLETED PRN (22:45)
[2017-11-29 23:30] VITALS: BP 127/70; PULSE 60; TEMP 36.9; O2SAT 96
[2017-11-30 03:32] VITALS: BP 129/76; PULSE 66; TEMP 36.5; O2SAT 97
[2017-11-30] MEDS ORDERED: LEVOTHYROXINE 50 MCG TAB PO SCH (06:00)
[2017-11-30 07:45] VITALS: BP 129/75; PULSE 60; TEMP 36.5; O2SAT 97
[2017-11-30 08:00] VITALS: O2SAT 97
[2017-11-30] MEDS ORDERED: ASPI81TA28 PO (11:37)
--- NOTE | 2017-11-30 11:44 | Discharge Instructions ---
Discharge Instructions Date of Service Nov 30, 2017. Admission Reason for Admission: Chest pain at rest Discharge Discharge Diagnosis / Problem: Non-exertional chest pain Discharge Goals Goal(s): Decrease discomfort, Diagnostic testing (exercise stress echo) Activity Recommendations Activity Limitations: resume your previous activity . Instructions / Follow-Up Instructions / Follow-Up Medications: no changes Chest pain: most likely this is not cardiac in nature, since it is positional and does not occur with exertion work up in the hospital was negative, normal EKG, normal cardiac enzymes CXR normal recommend having Dr. Downs refer you for exercise stress echocardiogram FOLLOW UP - call Dr. Downs's office for referral for exercise stress echo Current Hospital Diet Patient's current hospital diet: Regular Diet Discharge Diet Recommended Diet: Regular Diet Pending Studies Studies pending at discharge: no Medical Emergencies . Who to Call and When: Medical Emergencies: If at any time you feel your situation is an emergency, please call 911 immediately. . Non-Emergent Contact Non-Emergency issues call your: Primary Care Provider Call Non-Emergent contact if: your pain is worsening, you have any medication questions . . "Provider Documentation" section prepared by Albert Mari. . VTE Core Measure Inpt VTE Proph given/why not?: Treatment not indicated [place] Drug Monitoring Program Search Results: no issues identified
[2017-11-30 12:12] VITALS: BP 140/73; PULSE 58; TEMP 36.5; O2SAT 99
[2017-11-30 12:19] VITALS: BP 140/73; PULSE 58; TEMP 36.5; O2SAT 99
--- NOTE | 2017-12-01 08:10 | Discharge Summary ---
Discharge Summary Date of Service Nov 30, 2017. Discharge Summary Admission Date: Nov 29, 2017 at 18:11 Discharge Date: Nov 30, 2017 Discharge Disposition: Home Principal Diagnosis: Chest pain, non-exertional Procedures: none Consultations: none Medication Reconciliation Continued Medications: Levothyroxine Sodium (Levothyroxine Sodium) 50 Mcg Tab 50 MCG PO QAM Discharge Exam Patient without chest pain, ambulating in halls, no symptoms. Vitals and labs stable, troponin negative x 3. Discussed discharge and following up for exercise stress echo as outpatient and he agreed. Review of Systems: Constitutional: No fever, No chills, No sweats, No weight loss, No weakness , No fatigue, No problem reported Eyes: No worsening of vision, No eye pain, No redness, No discharge, No diplopia, No problem reported ENT: No hearing loss, No unusual epistaxis, No nasal symptoms, No sore throat, No tinnitus, No dental problems, No trouble swallowing, No problem reported Respiratory: No cough, No sputum, No wheezing, No shortness of breath, No dyspnea on exertion, No dyspnea at rest, No hemoptysis, No problem reported Cardiovascular: + chest pain (when sitting, typically when leaning back, cannot be reproduced), No orthopnea, No PND, No edema, No claudication, No palpitations, No problem reported Abdomen: No pain, No nausea, No vomiting, No diarrhea, No constipation, No GI bleeding, No problem reported Musculoskeletal: No joint pain, No muscle pain, No swelling, No calf pain, No problem reported Genitourinary - Male: No hematuria, No dysuria, No urinary frequency, No urinary urgency Neurologic: No memory loss, No paralysis, No weakness, No numbness/tingling , No vertigo, No balance problems, No problem reported Psychiatric: No depression symptoms, No anhedonism, No anxiety, No insomnia , No substance abuse, No problem reported Endocrine: No fatigue, No excessive thirst, No excessive urination, No problem reported Hematologic / Lymphatic: No abnormal bleeding/bruising, No clotting problems , No swollen lymph nodes, No night sweats, No problem reported Integumentary: No rash, No itch, No new/changing skin lesions, No color change, No bleeding, No problem reported Physical Exam: General Appearance: WD/WN, no apparent distress Eyes: normal inspection, EOMI, sclerae normal ENT: normal ENT inspection, hearing grossly normal, pharynx normal Neck: supple, no adenopathy, no JVD, trachea midline Respiratory/Chest: chest non-tender, lungs clear, normal breath sounds, no respiratory distress, no accessory muscle use Cardiovascular: regular rate, rhythm, no edema, no gallop, no JVD, no murmur , normal peripheral pulses Abdomen / GI: normal bowel sounds, non tender, soft, no organomegaly Extremities: normal inspection, no calf tenderness, normal capillary refill , no pedal edema, normal range of motion Neurologic/Psychiatric: scaffold setter II-XII nml as tested, no motor/sensory deficits , alert, normal mood/affect, normal reflexes, oriented x 3 Skin: normal color, warm/dry, no rash Lymphatic: no adenopathy Hospital Course 72 y/o M who was admitted on 11/29 for observation for chest pain Chest pain: no further pain while admitted, troponin negative x 3 sets vitals and labs stable cannot reproduced chest or back pain on palpation discussed discharging to home and referral for exercise stress echo this week he agreed with this plan CT angiogram of chest negative Hypothyroid: continue home meds Total Time Spent: Less than 30 minutes This includes examination of the patient, discharge planning, medication reconciliation, and communication with other providers. Discharge Instructions Please refer to the electronic Patient Visit Report (Discharge Instructions) for additional information. Follow-Up Dr. Downs, call to refer for exercise stress echo Additional Copies To ,Isma Barnett M.D.
== END 2017-11-30 12:27 | disposition home or self-care (01) ==
LOC: C.EDB 15:26 → C.2T 18:11 → ENRESERV 18:22
PROVIDERS: ADMIT Family Medicine; ATTEND Internal Medicine
DX: R07.9 Chest pain, unspecified (principal); E78.5 Hyperlipidemia, unspecified; Z98.890 Other specified postprocedural states; Z82.49 Family history of ischemic heart disease and other diseases of the circulatory system; Z87.891 Personal history of nicotine dependence

== ENCOUNTER → 2018-01-24 | Outpatient (CLI) | payer OTHER ==
[~2018-01-24] MED LIST changes: -ACET1TAB84 PO; -CIPR-255 PO; -OXYC1TAB3 PO; -PERCOCET PO
== END | disposition home or self-care (01) ==
LOC: C.LAB1850 14:03
PROVIDERS: ATTEND Physician Assistant
DX: R68.89 Other general symptoms and signs (principal)

== ENCOUNTER → 2018-02-20 | Outpatient (CLI) | payer OTHER ==
--- NOTE | 2018-02-20 11:14 | DIAGNOSTIC IMAGING REPORT ---
(CHEST) THORAX WITHOUT CLINICAL HISTORY: R91.1 Pulmonary nodule seen on imaging [id number] Former smoker FOLLOW-UP STUDY COMPARISON STUDY: 11/29/2017, 08/20/2017 CT DOSE: 331.99 mGycm TECHNIQUE: CT of the thorax was performed from the thoracic inlet to the lung bases. Images are reviewed in the axial, sagittal, and coronal planes. IV contrast was not administered for this examination. A dose lowering technique was utilized adhering to the principles of ALARA. FINDINGS: Thyroid: Imaged portions of the thyroid gland are normal in appearance. Thoracic aorta: The thoracic aorta is normal in course and caliber, noting standard 3 vessel arch anatomy. Heart: The heart is normal in size and configuration, without pericardial effusion. Lungs and pleural spaces: There are no pleural effusions. There are apical pleural plaques with calcification. There is no focal pulmonary consolidation. On image #[id number] there is a stable 6 mm right lower lobe pulmonary nodule. On image #[id number], there is a stable 2.5 mm right lower lobe subpleural nodule. On image #148/311, there is a stable 3 mm left lower lobe pulmonary nodule. There is a stable calcified granuloma within the left lower lobe. On image #228/[id number]. There is a stable 4 mm left lower lobe pulmonary nodule. Image #[id number] there is a stable 5 mm subpleural left lower lobe pulmonary nodule Mediastinum: There is no evidence of pathologic adenopathy. Martina: There is no evidence of pathologic adenopathy given the limitations of a noncontrast study Axilla: There is no evidence of pathologic adenopathy Upper abdomen: Cholelithiasis Skeletal structures: There are no lytic or blastic osseous lesions. IMPRESSION: 1. Stable multiple solid subcentimeter pulmonary nodules, the largest of which measures 6 mm. 12 month follow-up is recommended per Fleischner criteria. 2. Calcified pleural plaques at the lung apices 3. No evidence of pathologic adenopathy 4. Cholelithiasis Electronically signed by: Palomo Moore M.D. 02/20/2018 11:12 AM Dictated Date/Time: 02/20/2018 11:03 AM
== END | disposition home or self-care (01) ==
LOC: C.CTS 10:39
PROVIDERS: ATTEND Internal Medicine Critical Care Medicine
DX: R91.8 Other nonspecific abnormal finding of lung field (principal); Z87.891 Personal history of nicotine dependence; K80.20 Calculus of gallbladder without cholecystitis without obstruction

== ENCOUNTER → 2018-03-10 | Outpatient (CLI) | payer OTHER ==
[2018-03-10 13:35] LABS: HEMATOCRIT 45.4 % (42-52); HEMOGLOBIN 15.3 g/dL (14.0-18.0); MEAN CELL VOLUME 93.2 fL (80-100); MEAN CORPUSCULAR HEMOGLOBIN 31.4 pg (25-34); MEAN CORPUSCULAR HGB CONC 33.7 g/dl (32-36); MEAN PLATELET VOLUME 10.8 fL (7.4-10.4); PLATELET COUNT 213 K/uL (130-400); RED CELL DISTRIBUTION WIDTH CV 13.9 % (11.5-14.5); RED CELL DISTRIBUTION WIDTH SD 47.3 fL (36.4-46.3); WHITE BLOOD COUNT 4.16 K/uL (4.8-10.8)
[2018-03-10 14:22] LABS: BLOOD UREA NITROGEN 13 mg/dl (7-18); CALCIUM 9.2 mg/dl (8.5-10.1); CARBON DIOXIDE 30 mmol/L (21-32); CHOLESTEROL 184 mg/dl (0-200); CREATININE 1.21 mg/dl (0.60-1.40); GLUCOSE 88 mg/dl (70-99); POTASSIUM 4.5 mmol/L (3.5-5.1); SODIUM 139 mmol/L (136-145)
[2018-03-10 14:33] LABS: LDL CHOLESTEROL CALCULATED 125 mg/dl
== END | disposition home or self-care (01) ==
LOC: C.LABBC 09:41
PROVIDERS: ATTEND Internal Medicine
DX: E03.9 Hypothyroidism, unspecified (principal); N20.1 Calculus of ureter; E78.5 Hyperlipidemia, unspecified; R91.1 Solitary pulmonary nodule

== ENCOUNTER → 2018-07-03 | Outpatient (CLI) | payer OTHER ==
[2018-07-03 11:00] LABS: ALBUMIN 3.7 gm/dl (3.4-5.0); BLOOD UREA NITROGEN 13 mg/dl (7-18); CARBON DIOXIDE 30 mmol/L (21-32); CREATININE 1.17 mg/dl (0.60-1.40); GLUCOSE 83 mg/dl (70-99); PHOSPHORUS 2.5 mg/dl (2.5-4.9); POTASSIUM 4.3 mmol/L (3.5-5.1); SODIUM 138 mmol/L (136-145)
== END | disposition home or self-care (01) ==
LOC: C.LABBC 09:03
PROVIDERS: ATTEND Internal Medicine Nephrology
DX: N20.0 Calculus of kidney (principal)